=== PATIENT | female | born 1970 | race Caucasian/White ===

== ENCOUNTER 2016-08-16 09:49 | Inpatient (IN) | payer OTHER ==
[~2016-08-16] VITALS: Ht 165.1 cm; Wt 122.1 kg
[~2016-08-16 09:49] MED LIST: ALPR0.5T PO; AZIT250T PO; CETI10TA22 PO; DIPH25CA58 PO; EPIN0.3A4 IJ; FAMO-63 PO; FLUT9.9S NS; LEVO150T PO; LISI10TA2 PO; PRED20TA PO
--- NOTE | 2016-08-16 10:03 | EKG ---
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
[2016-08-16 10:23] LABS: BASO # 0.1 x10^3/uL (0.0-0.2); BASO % 2 % (0-3); EOS # 0.3 x10^3/uL (0.0-0.7); EOS % 5 % (0-3); HEMATOCRIT 38.2 % (36.0-47.0); HEMOGLOBIN 12.3 g/dL (12.0-15.5); LYMPH # 1.1 x10^3/uL (1.0-4.8); LYMPH % 17 % (24-48); MEAN CORPUSCULAR HEMOGLOBIN 26 pg (25-35); MEAN CORPUSCULAR HGB CONC 32 g/dL (31-37); MEAN CORPUSCULAR VOLUME 80 fL (79-100); MONO # 0.5 x10^3/uL (0.0-1.1); MONO % 8 % (0-9); NEUT # 4.3 x10^3uL (1.8-7.7); NEUT % 69 % (31-73); PLATELET COUNT 167 x10^3/uL (140-400); RED BLOOD COUNT 4.78 x10^6/uL (3.50-5.40); RED CELL DISTRIBUTION WIDTH 14.4 % (11.5-14.5); WHITE BLOOD COUNT 6.2 x10^3/uL (4.0-11.0)
--- NOTE | 2016-08-16 10:26 | ED.ADGEN ---
Past History Past Medical History: Cancer, Hypertension Past Surgical History: Cholecystectomy, , Other Smoking: Non-smoker Alcohol Use: None Drug Use: None Adult General Chief Complaint Chief Complaint Chest pain HPI HPI Patient is a 45 year old female who presents with chest pain. Started at 9 AM while she was sitting at home. It's in her left side of her chest, nonradiating , squeezing sensation, no associated shortness of breath or diaphoresis. She has had this another time in the past. She has no known cardiac disease, had a negative stress test 4 years ago. She does not take daily aspirin, reports grandmas on both sides had cardiac disease, one in her 50s. Patient has hypothyroid and takes thyroid replacement. She's had fatigue in recent weeks. NO History of PE or DVT reported. No recent surgeries or prolonged immobilization, no estrogen replacement. She's had a mild cough and runny nose over the last few days, no fevers. He does not worsen with movement or deep inspiration. Review of Systems Review of Systems Constitutional: Denies fever or chills [] Eyes: Denies change in visual acuity, redness, or eye pain [] HENT: Denies sore throat [] Respiratory: Denies shortness of breath [] Cardiovascular: No additional information not addressed in HPI [] GI: Denies abdominal pain, nausea, vomiting, bloody stools or diarrhea [] : Denies dysuria or hematuria [] Musculoskeletal: Denies back pain or joint pain [] Integument: Denies rash or skin lesions [] Neurologic: Denies headache, focal weakness or sensory changes [] Current Medications Current Medications Current Medications Medications (Trade) Dose Ordered Sig/Gaurang Start Time Stop Time Status Last Admin Dose Admin Aspirin (Anel Aspirin) 325 mg 1X ONCE 08/16/16 10:55 08/16/16 10:56 08/16/16 10:47 325 MG Fentanyl Citrate (Fentanyl 2ml Vial) 50 mcg PRN Q1HR PRN 08/16/16 10:45 08/17/16 10:44 UNV Nitroglycerin (Nitrostat) 0.4 mg 1X ONCE 08/16/16 10:55 08/16/16 10:56 08/16/16 10:47 0.4 MG Ondansetron HCl (Zofran) 4 mg PRN Q4HRS PRN 08/16/16 10:45 08/17/16 10:44 UNV Allergies Allergies Allergies Coded Allergies Type Severity Reaction Last Updated Verified No Known Drug Allergies 06/19/15 No Physical Exam Physical Exam Constitutional: Well developed, well nourished, no acute distress, non-toxic appearance. [] HENT: Normocephalic, atraumatic, bilateral external ears normal, oropharynx moist, no oral exudates, nose normal. [] Eyes: PERRLA, EOMI, conjunctiva normal, no discharge. [] Neck: Normal range of motion, no tenderness, supple, no stridor. [] Cardiovascular:Heart rate regular with regular rhythm, no murmur [] Lungs & Thorax: Bilateral breath sounds clear to auscultation, no wheeze or crackles Abdomen: Bowel sounds normal, soft, no tenderness, no masses, no pulsatile masses. [] Skin: Warm, dry, no erythema, no rash. [] Back: No tenderness, no CVA tenderness. [] Extremities: No tenderness, no cyanosis, no clubbing, ROM intact, trace bilateral lower extremity edema, negative Homans bilaterally Neurologic: Alert and oriented X 3, normal motor function, normal sensory function, no focal deficits noted. [] Psychologic: Affect normal, judgement normal, mood normal. [] Current Patient Data Vital Signs Vital Signs Date Time Temp Pulse Resp B/P Pulse Ox O2 Delivery O2 Flow Rate FiO2 08/16/16 10:47 94 123/62 Lab Results Laboratory Tests Test 08/16/16 10:10 08/16/16 10:16 08/16/16 10:31 White Blood Count 6.2x10^3/uL (4.0-11.0) Red Blood Count 4.78x10^6/uL (3.50-5.40) Hemoglobin 12.3g/dL (12.0-15.5) Hematocrit 38.2% (36.0-47.0) Mean Corpuscular Volume 80fL (79-100) Mean Corpuscular Hemoglobin 26pg (25-35) Mean Corpuscular Hemoglobin Concent 32g/dL (31-37) Red Cell Distribution Width 14.4% (11.5-14.5) Platelet Count 167x10^3/uL (140-400) Neutrophils (%) (Auto) 69% (31-73) Lymphocytes (%) (Auto) 17% (24-48) L Monocytes (%) (Auto) 8% (0-9) Eosinophils (%) (Auto) 5% (0-3) H Basophils (%) (Auto) 2% (0-3) Neutrophils # (Auto) 4.3x10^3uL (1.8-7.7) Lymphocytes # (Auto) 1.1x10^3/uL (1.0-4.8) Monocytes # (Auto) 0.5x10^3/uL (0.0-1.1) Eosinophils # (Auto) 0.3x10^3/uL (0.0-0.7) Basophils # (Auto) 0.1x10^3/uL (0.0-0.2) POC Troponin I 0.01ng/ml (<0.08) POC Hemoglobin 12.9gm/dL POC Hematocrit 38% POC Sodium 139mmol/L (135-145) POC Potassium 4.0mmol/L (3.5-5.0) POC Chloride 103mmol/L (98-110) POC Total CO2 25mmol/L (23-32) Anion Gap 17mmol/L (6-14) H POC Blood Urea Nitrogen 10mg/dL (8-26) POC Creatinine 0.6mg/dL (0.5-1.4) Glucose Level 88mg/dL (60-99) POC Ionized Calcium (Lara) 1.18mmol/L (1.13-1.32) EKG EKG 75 bpm, sinus, normal axis, normal intervals, no ST elevation or depression, nonischemic T waves, interpreted by ms Radiology/Procedures Radiology/Procedures Chest x-ray: IMPRESSION: No acute cardiopulmonary abnormality is detected. Course & Med Decision Making Course & Med Decision Making Pertinent Labs and Imaging studies reviewed. (See chart for details) Patient was given aspirin and nitroglycerin. No acute findings on ED workup. Will admit for serial cardiac enzymes. Accepted by Dr. Fitzpatrick to telemetry. Added thyroid labs. Final Impression Final Impression Unstable angina[] Problems: Dragon Disclaimer Dragon Disclaimer This electronic medical record was generated, in whole or in part, using a voice recognition dictation system. ROBBIE STEELE MD Aug 16, 2016 10:26
--- NOTE | 2016-08-16 10:26 | RAD ---
Portable chest, 08/16/2016: History: Chest pain Comparison is made to a study from 09/24/2015. The depth of inspiration is suboptimal. The heart size and pulmonary vascularity are normal. No pulmonary infiltrates are seen. There is no evidence of pleural fluid. Surgical clips are projected over the lower neck, right more so than left. IMPRESSION: No acute cardiopulmonary abnormality is detected.
[2016-08-16 10:37] LABS: HEMOGLOBIN ISTAT 12.9 gm/dL
[2016-08-16] MEDS ORDERED: FENTANYL PF 100 MCG/2 ML VIAL. IV PRN (10:45)
[2016-08-16] MEDS ORDERED: ONDANSETRON PF 4 MG/2 ML VIAL. IV PRN (10:45)
[2016-08-16] MEDS ORDERED: NITROGLYCERIN SUBLINGUAL 0.4 MG BOTTLE OF 25. SL ONE (10:55)
[2016-08-16] MEDS ORDERED: ASPIRIN 325 MG TABLET PO ONE (10:55)
[2016-08-16 13:59] LABS: FREE T4 1.43 ng/dL (0.76-1.46); THYROID STIM HORMONE (TSH) 1.995 uIU/mL (0.358-3.740)
[2016-08-16 14:00] VITALS: BP 122/75
[2016-08-16 14:43] VITALS: BP 122/75
[2016-08-16 17:15] VITALS: BP 112/69
--- NOTE | 2016-08-16 19:32 | HP ---
ADMIT DATE: 08/16/2016 HISTORY OF PRESENT ILLNESS: The patient is a 45-year-old female patient who came to the Emergency Room complaining of left-sided chest pain that started this morning when she was ____. The pain is mostly in the left side of the chest started around 9:00 in the morning. It is not associated with any shortness of breath, nausea, vomiting or diaphoresis, not radiating. It was rated about 4-5/10 and she was given nitroglycerin and aspirin while in the Emergency Room, which brought the intensity to down to 3. She continues to have mild left-sided chest pain at the time I saw her. She apparently was evaluated in the Emergency Room and her first set of cardiac enzymes showed troponin to be 0.01. Her chest x-ray showed no acute cardiopulmonary abnormality detected and her 12-lead EKG showed that she was in sinus rhythm at heart rate of 75 beats per minute, normal intervals, no ST segment elevation or depression and nonischemic T waves. 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 PAST MEDICAL HISTORY: Significant for hypertension, thyroid cancer with resultant acquired hypothyroidism. She was treated with surgery and radioactive iodine and she is currently on Synthroid. PAST SURGICAL HISTORY: Significant for thyroidectomy and resection done twice in 2011 initially to remove the thyroid and second time to resect metastatic thyroid cancer in the cervical lymph node and also she is status post D and C, 2 sections, tubal ligation and cholecystectomy. ALLERGIES: She has no known drug allergies. She does have seasonal allergies. MEDICATIONS: She is currently on following medications: She is on levothyroxine sodium 150 mcg once a day, lisinopril 5 mg once a day, she is also on Flonase 2 sprays to each nostril once a day, famotidine 20 mg twice a day, EpiPen 2 packs for anaphylaxis, diphenhydramine 2 capsules p.o. q.i.d., cetirizine for Zyrtec 10 mg once a day, azithromycin 250 mg and alprazolam 0.5 mg daily. FAMILY HISTORY: She has 2 young brothers, one of them has joint disease. Father is still alive at age of 68 and is known to have hypertension and type 2 diabetes. Mother is alive at age of 67 and is known to have hyperthyroidism and hypertension. Her grandmother from her father's side had 2 myocardial infarctions in her mid 50s. SOCIAL HISTORY: She is , has 3 sons and 1 daughter. She never smoked, does not drink alcohol or use any recreational drugs. 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 REVIEW OF SYSTEMS: The patient denied any blurring of vision, cataract, glaucoma or macular degeneration. Denied any earache, tinnitus or sensorineural deafness. Denied any nosebleeds, stuffy nose or postnasal drip. Denied any sore throat, sore tongue, toothache, hoarseness of voice or difficulty swallowing. Denied any nausea, vomiting, diarrhea or constipation. Denied any hematemesis, melena, or hematochezia. Denied any dysuria, frequency or hematuria. She did complain of chest pain; however, she denied any shortness of breath, orthopnea or paroxysmal nocturnal dyspnea. Denied any cough, phlegm or hemoptysis. PHYSICAL EXAMINATION: GENERAL: On arrival to the Emergency Room, she looked well and was clearly in no apparent respiratory distress, pale, but no jaundice, cyanosis or thyromegaly. No jugular venous distention. No limb edema. VITAL SIGNS: Her heart rate was 98, blood pressure was 120/53, temperature was 97.9, respiratory rate was 18 and oxygen saturation was 98%. HEAD, EYES, EARS, NOSE AND THROAT: Showed normocephalic, atraumatic. NECK: Supple. HEART: Showed normal first and second heart sounds with no gallop, rub or murmur. CHEST: Clear to auscultation. No crepitation or rhonchi. ABDOMEN: Distended, soft, nontender. No guarding or rigidity. No organomegaly. All hernial orifices intact. Bowel sounds normal. NEUROLOGIC: She was awake, alert, responding appropriately. Cranial nerves are intact. She moves extremities without difficulty. She ambulates without assistance or assistive devices. LABORATORY DATA: While in the Emergency Room, she had lab work done, which showed a white cell count of 6200, hemoglobin 12.3, hematocrit 38, MCV 80 and platelet count of 167,000 with normal manual differential. Chemistry showed a serum sodium of 139, potassium 4, chloride 103, bicarbonate 25, anion gap of 17, BUN 10 ____. Her blood sugar was 88. Ionized calcium was 1.18. Her TSH was 1.995. Her free T4 was 1.43 and free T3 was 2.31. ASSESSMENT AND PLAN: In summary, this is a 45-year-old female patient who came with left-sided chest pain, fairly atypical. She has high blood pressure and family history of premature coronary artery disease. She is not a smoker. She is not diabetic. Her lipid profile is unknown. We will admit and check 2 more sets of cardiac enzyme, get Cardiology consult and decide on further management accordingly. RUTH MEDINA MD DR: JENNIFER/bobo JOB#: [id number] / [id number]
[2016-08-16] MEDS ORDERED: DIPHENHYDRAMINE HCL 25 MG CAPSULE PO PRN (21:45)
[2016-08-16] MEDS ORDERED: CETIRIZINE HCL 10 MG TABLET PO PRN (21:45)
[2016-08-16 22:00] VITALS: BP 125/70
[2016-08-16] MEDS ORDERED: LISI-338 PO (22:04)
[2016-08-17 05:00] VITALS: BP 126/77
[2016-08-17] MEDS: LEVOTHYROXINE 150 MCG TABLET PO SCH (06:13)
[2016-08-17 06:21] LABS: BASO # 0.1 x10^3/uL (0.0-0.2); BASO % 1 % (0-3); EOS # 0.3 x10^3/uL (0.0-0.7); EOS % 5 % (0-3); HEMATOCRIT 36.4 % (36.0-47.0); HEMOGLOBIN 11.7 g/dL (12.0-15.5); LYMPH # 1.2 x10^3/uL (1.0-4.8); LYMPH % 20 % (24-48); MEAN CORPUSCULAR HEMOGLOBIN 26 pg (25-35); MEAN CORPUSCULAR HGB CONC 32 g/dL (31-37); MEAN CORPUSCULAR VOLUME 80 fL (79-100); MONO # 0.5 x10^3/uL (0.0-1.1); MONO % 9 % (0-9); NEUT # 4.1 x10^3uL (1.8-7.7); NEUT % 66 % (31-73); PLATELET COUNT 154 x10^3/uL (140-400); RED BLOOD COUNT 4.56 x10^6/uL (3.50-5.40); RED CELL DISTRIBUTION WIDTH 15.2 % (11.5-14.5); WHITE BLOOD COUNT 6.2 x10^3/uL (4.0-11.0)
[2016-08-17 06:36] LABS: ALBUMIN 3.3 g/dL (3.4-5.0); ALBUMIN/GLOBULIN RATIO 0.9 (1.0-1.7); CALCIUM 8.8 mg/dL (8.5-10.1); CREATININE 0.7 mg/dL (0.6-1.0); GFR 90.9; TOTAL BILIRUBIN 0.3 mg/dL (0.2-1.0)
[2016-08-17] MEDS: LISINOPRIL 5 MG TABLET. PO SCH (08:26)
--- NOTE | 2016-08-17 09:11 | PDOC2 ---
CONSULT Date of Admission DATE: 08/17/16 TIME: 09:04 Reason for Consult: cp Problem List Problems Medical Problems: (1) Chest pain Status: Acute History of Present Illness Ms parra is a 45 year old obese white female. She presents with complaints of chest discomfort that started yesterday. She describes left sided chest discomfort that was non radiating that started while doing normal light activity. She denies any exacerbating or relieving factors. She reports several episodes of the same pain recently but less severe and only lasting short periods. She complains of fatigue, progressive over the last year. She believes she could walk about a quarter mile but does not do so secondary to fatigue. She has stairs in her house that she avoids because of shortness of breath and fatigue. This started she believes over the last 1 year. She complains of occasional sensation of her heart racing but denies any lightheadedness or syncope. She denies congestive symptoms. She does report frequent waking and snoring but states she had an eval for DMITRY in the recent past that was negative. Past Medical History thyroid cancer s/p chemo and radiation hypertension Past Surgical History thyroidectomy, lymph node resection tubal ligation cholecystectomy Family History hypertension, diabetes mellitus Social History non smoker, no significant ETOH, no illicit drugs Current Medications Current Medications Aspirin (Anel Aspirin) 325 mg 1X ONCE PO Last administered on 08/16/16 10:47 ; Start 08/16/16 at 10:55; Stop 08/16/16 at 10:56; Status DC Nitroglycerin (Nitrostat) 0.4 mg 1X ONCE SL Last administered on 08/16/16 10: 47; Start 08/16/16 at 10:55; Stop 08/16/16 at 10:56; Status DC Ondansetron HCl (Zofran) 4 mg PRN Q4HRS PRN IV NAUSEA/VOMITING; Start 08/16/16 at 10:45; Stop 08/17/16 at 10:44 Fentanyl Citrate (Fentanyl 2ml Vial) 50 mcg PRN Q1HR PRN IV PAIN; Start at 10:45; Stop 08/17/16 at 10:44 Cetirizine HCl (Zyrtec) 10 mg PRN DAILY PRN PO ALLERGIES; Start 08/16/16 at 21: 45 Diphenhydramine HCl (Benadryl) 25 mg PRN QID PRN PO ALLERGIES; Start 08/16/16 at 21:45 Levothyroxine Sodium (Synthroid) 150 mcg DAILY07 PO Last administered on 06:13; Start 08/17/16 at 07:00 Lisinopril (Prinivil) 5 mg DAILY PO Last administered on 08/17/16 08:26; Start 08/17/16 at 09:00 Active Scripts Active Flonase Allergy Relief (Fluticasone Propionate) 9.9 Ml Anderson.susp 2 Sprays NS DAILY Xanax (Alprazolam) 0.5 Mg Tablet 1 Tab PO DAILY Zithromax (Azithromycin) 250 Mg Tablet 1 Pkg PO UD Prednisone 20 Mg Tablet 2 Tab PO DAILY Pepcid (Famotidine) 20 Mg Tablet 1 Tab PO BID Benadryl (Diphenhydramine Hcl) 25 Mg Capsule 2 Cap PO QID Epipen 2-Curtis (Epinephrine) 0.3 Mg/0.3 Ml Auto.injct 0.3 Mg IJ PRN 1X PRN Reported Lisinopril 5 Mg Tablet 1 Tab PO DAILY Synthroid (Levothyroxine Sodium) 150 Mcg Tablet 150 Mcg PO DAILY Zyrtec (Cetirizine Hcl) 10 Mg Tablet 10 Mg PO DAILY Allergies: Coded Allergies: No Known Drug Allergies (Unverified , 06/19/15) Review of System as per HPI or negative General: Alert, Oriented X3, Cooperative, No acute distress HEENT: Atraumatic, EOMI, Mucous membr. moist/pink Lungs: Other (decreased without crackles, rhonchi or wheezing) Heart: Regular rate, Normal S1, Normal S2, Other (no obvious murmurs, clicks or rub s, no gallops) Abdomen: Normal bowel sounds, Soft, No tenderness Extremities: No cyanosis, No edema, Normal pulses Neuro: Normal speech, Strength at 5/5 X4 ext Psych/Mental Status: Mental status NL, Mood NL VITALS Vital Signs Date Time Temp Pulse Resp B/P Pulse Ox O2 Delivery O2 Flow Rate FiO2 08/17/16 08:26 74 08/17/16 08:00 Room Air 08/17/16 05:00 97.5 18 126/77 99 Labs Laboratory Tests Test 08/16/16 10:10 08/16/16 10:16 08/16/16 10:31 08/16/16 12:00 White Blood Count 6.2x10^3/uL (4.0-11.0) Red Blood Count 4.78x10^6/uL (3.50-5.40) Hemoglobin 12.3g/dL (12.0-15.5) Hematocrit 38.2% (36.0-47.0) Mean Corpuscular Volume 80fL (79-100) Mean Corpuscular Hemoglobin 26pg (25-35) Mean Corpuscular Hemoglobin Concent 32g/dL (31-37) Red Cell Distribution Width 14.4% (11.5-14.5) Platelet Count 167x10^3/uL (140-400) Neutrophils (%) (Auto) 69% (31-73) Lymphocytes (%) (Auto) 17% (24-48) Monocytes (%) (Auto) 8% (0-9) Eosinophils (%) (Auto) 5% (0-3) Basophils (%) (Auto) 2% (0-3) Neutrophils # (Auto) 4.3x10^3uL (1.8-7.7) Lymphocytes # (Auto) 1.1x10^3/uL (1.0-4.8) Monocytes # (Auto) 0.5x10^3/uL (0.0-1.1) Eosinophils # (Auto) 0.3x10^3/uL (0.0-0.7) Basophils # (Auto) 0.1x10^3/uL (0.0-0.2) Thyroid Stimulating Hormone (TSH) 1.995uIU/mL (0.358-3.740) Free Thyroxine 1.43ng/dL (0.76-1.46) Free Triiodothyronine (T3) pg/mL 2.31pg/mL (2.18-3.98) Bedside Troponin I 0.01ng/ml (<0.08) Bedside Hemoglobin 12.9gm/dL Bedside Hematocrit 38% Bedside Sodium 139mmol/L (135-145) Bedside Potassium 4.0mmol/L (3.5-5.0) Bedside Chloride 103mmol/L (98-110) Bedside Total CO2 25mmol/L (23-32) Anion Gap 17mmol/L (6-14) Bedside Blood Urea Nitrogen 10mg/dL (8-26) Bedside Creatinine 0.6mg/dL (0.5-1.4) Glucose Level 88mg/dL (60-99) Bedside Ionized Calcium (Lara) 1.18mmol/L (1.13-1.32) Nasal Screen MRSA (PCR) Negative (Negative) Test 08/16/16 15:40 08/16/16 21:40 08/17/16 05:49 Troponin I Quantitative < 0.017ng/mL (0-0.055) < 0.017ng/mL (0-0.055) White Blood Count 6.2x10^3/uL (4.0-11.0) Red Blood Count 4.56x10^6/uL (3.50-5.40) Hemoglobin 11.7g/dL (12.0-15.5) Hematocrit 36.4% (36.0-47.0) Mean Corpuscular Volume 80fL (79-100) Mean Corpuscular Hemoglobin 26pg (25-35) Mean Corpuscular Hemoglobin Concent 32g/dL (31-37) Red Cell Distribution Width 15.2% (11.5-14.5) Platelet Count 154x10^3/uL (140-400) Neutrophils (%) (Auto) 66% (31-73) Lymphocytes (%) (Auto) 20% (24-48) Monocytes (%) (Auto) 9% (0-9) Eosinophils (%) (Auto) 5% (0-3) Basophils (%) (Auto) 1% (0-3) Neutrophils # (Auto) 4.1x10^3uL (1.8-7.7) Lymphocytes # (Auto) 1.2x10^3/uL (1.0-4.8) Monocytes # (Auto) 0.5x10^3/uL (0.0-1.1) Eosinophils # (Auto) 0.3x10^3/uL (0.0-0.7) Basophils # (Auto) 0.1x10^3/uL (0.0-0.2) Sodium Level 139mmol/L (136-145) Potassium Level 4.0mmol/L (3.5-5.1) Chloride Level 104mmol/L (98-107) Carbon Dioxide Level 28mmol/L (21-32) Anion Gap 7 (6-14) Blood Urea Nitrogen 9mg/dL (7-20) Creatinine 0.7mg/dL (0.6-1.0) Estimated GFR (Cockcroft-Gault) 90.9 BUN/Creatinine Ratio 13 (6-20) Glucose Level 89mg/dL (70-99) Calcium Level 8.8mg/dL (8.5-10.1) Magnesium Level 2.1mg/dL (1.8-2.4) Total Bilirubin 0.3mg/dL (0.2-1.0) Aspartate Amino Transf (AST/SGOT) 15U/L (15-37) Alanine Aminotransferase (ALT/SGPT) 21U/L (14-59) Alkaline Phosphatase 49U/L (46-116) Total Protein 7.0g/dL (6.4-8.2) Albumin 3.3g/dL (3.4-5.0) Albumin/Globulin Ratio 0.9 (1.0-1.7) Images EKG - sinus rhythm with non specific t abnormalities Assessment/Plan Chest pain - DE ruled out. Will check echo and with symptoms of poor functional capacity and progressive fatigue as well as new dyspnea on exertion, will recommend MPI. Stress today. abn ekg - no acute ischemic changes hypertension - controlled on current medical therapy. Problems: CHRISTINA MOORE APRN Aug 17, 2016 09:11
[2016-08-17] MEDS ORDERED: REGADENOSON 0.4 MG/5 ML DISP.SYRIN. IV ONE (11:20)
[2016-08-17 12:49] VITALS: BP 135/75
--- NOTE | 2016-08-17 13:19 | ACF ---
Admission Criteria Forms TELEMETRY CARE Telemetry Admission Guidelines (Place 'X' for any and all applicable criteria): Admission to telemetry [A] may be indicated for ANY ONE of the following(1)(2)(3 )(4)(5): [X]I. Cardiac disease, including ANY ONE of the following (9)(10)(11)(12)(13 ): [ ]a) Postacute AR [ ]b) Low-risk patients with ST-segment elevation AR who have undergone successful percutaneous coronary intervention [X]c) Unstable angina [ ]d) Suspected AR (until it is ruled out) [ ]e) Post cardiac surgery (first 48 to 72 hours unless complications occur) [ ]f) Acute arrhythmias (including significant tachycardia or bradycardia) [B] [ ]g) Firing of an implantable cardioverter defibrillator [C] [ ]h) Suspected pacemaker or implantable cardioverter defibrillator malfunction (10) [ ]i) New administration or adjustment of an antiarrhythmic drug [D ] [ ]j) Child admitted for acute congestive heart failure [ ]j) Long QT syndrome [ ]k) Advanced heart block (eg, second-degree Mobitz type II, third- degree heart block) [ ]l) Acute myocarditis or pericarditis [ ]m) Short-term (ambulatory or inpatient) monitoring after a cardiac procedure as indicated by ANY ONE of the following [E]: [ ]i) Electrophysiologic studies [ ]ii) Percutaneous coronary intervention with stent placement [ ]iii) Pacemaker placement with cardiac conduction defect [ ]iv) Implantable cardiac defibrillator placement [ ]II. Drug overdose or poisoning with substance that causes arrhythmias or QT prolongation (eg, phenothiazines, sympathomimetic agents, cyclic antidepressants, digitalis, antiarrhythmic drugs)(15) [ ]III. Short-term (ambulatory or inpatient) monitoring after therapeutic or diagnostic procedure requiring conscious sedation or anesthesia (eg, endoscopy, elective cardioversion) [ ]IV. Acute cerebrovascular even[F](18) [ ]V. Massive blood transfusion (eg, at least 10 units of packed red blood cells in 24 hours) [ ]. Variceal bleeding after endoscopy, sclerotherapy, or IV vasopressin [ ]VII. Uncorrected electrolyte abnormalities associated with an increased risk of dangerous arrhythmia [G]; examples include [ ]a) Hyperkalemia with attributable ECG changes [ ]b) Potassium greater than 6.5 mmol/L (mEq/L) in a patient without history of chronic renal disease [ ]c) Prolonged QT attributed to hypokalemia, hypomagnesemia, or hypocalcemia [ ]VIII.Unexplained syncope or other neurologic event suspected of being due to arrhythmia due to a finding that increases risk; examples include(19)(20)(21): [ ]a) High-risk ECG findings (eg, bifascicular block, bradycardia, abnormal QT interval, ventricular pre- excitation) [ ]b) History of previous syncope due to arrhythmia [ ]c) Abnormal ventricular function (eg, reduced ejection fraction ) [ ]d) Exertional or supine syncope [ ]e) Concerning syncope characteristics (eg, sudden loss of consciousness without prodrome) [ ]f) Family history of sudden [ ]g) Use of arrhythmogenic medication [ ]h) Suspected cardiac ischemia [ ]i) Known channelopathy (eg, long QT syndrome, Brugada syndrome, or catecholaminergic paroxysmal ventricular tachycardia) [ ]j) Known structural heart disease (eg, hypertrophic cardiomyopathy , severe valvular disease) [ ]k) Palpitations preceding syncope The original [employer] content created by [employer] has been revised. The portions of the content which have been revised are identified through the use of italic text or in bold, and [employer] has neither reviewed nor approved the modified material. All other unmodified content is copyright [employer]. Please see references footnoted in the original [employer] edition 2016 Admission Criteria Met?: Yes HONG FARLEY Aug 17, 2016 13:19
--- NOTE | 2016-08-17 16:37 | CARD ---
APPROVED REPORT EXAM: Two-dimensional and M-mode echocardiogram with Doppler and color Doppler. Other Information Quality : Technically Limited Rhythm : NSRTechnically limited study due to body habitus. INDICATION Chest Pain 2D DIMENSIONS RVDd3.1 (2.9-3.5cm)Left Atrium(2D)3.0 (1.6-4.0cm) IVSd1.3 (0.7-1.1cm)Aortic Root(2D)2.3 (2.0-3.7cm) LVDd4.1 (3.9-5.9cm)LVOT Diameter2.3 (1.8-2.4cm) PWd1.3 (0.7-1.1cm)LVDs3.0 (2.5-4.0cm) FS (%) 28.0 %SV40.8 ml LVEF(%)54.7 (>50%) Aortic Valve AoV Peak Kingsley.142.2cm/sAoV VTI28.2cm AO Peak GR.8.1mmHgLVOT Peak Kingsley.114.1cm/s LVOT VTI 21.45cmAO Mean GR.5mmHg KRYSTAL (VMAX)3.71zs5URU (VTI)3.07cm2 Mitral Valve MV E Zgsyzlsy28.5cm/sMV DECEL [id number] MV A Mznlzqbh62.0cm/sMV DEQ68ii E/A Ratio1.1MV A Ptsllcvz83bj MVA (PHT)4.59cm2 Tricuspid Valve TR P. Yprltvcd203au/sRAP [id number] TR Peak Gr.73jdPaBBFY90ioWt LEFT VENTRICLE The left ventricle is normal size. There is borderline concentric left ventricular hypertrophy. Left ventricle systolic function is normal. The Ejection Fraction is 55-60%. There is normal LV segmental wall motion. The left ventricular diastolic function and filling is normal for age. RIGHT VENTRICLE The right ventricle is normal size. The right ventricular systolic function is normal. ATRIA The left atrium size is normal. The right atrium size is normal. The interatrial septum is intact wit h no evidence for an atrial septal defect or patent foramen ovale as noted on 2-D or Doppler imaging. AORTIC VALVE The aortic valve is normal in structure and function. The aortic valve is trileaflet. Doppler and Col or Flow revealed no significant aortic regurgitation. There is no significant aortic valvular stenosi s. MITRAL VALVE The mitral valve is normal in structure and function. There is no mitral valve stenosis. Doppler and Color Flow revealed no mitral valve regurgitation noted. TRICUSPID VALVE The tricuspid valve is normal in structure and function. Doppler and Color Flow revealed trace to mil d tricuspid regurgitation. The PA pressure was estimated at 29 mmHg. There is no tricuspid valve sten osis. PULMONIC VALVE The pulmonic valve is not well visualized. Doppler and Color Flow revealed no pulmonic valvular regur gitation. There is no pulmonic valvular stenosis. GREAT VESSELS The aortic root is normal in size. Pulmonary veins not recorded. The IVC was not visualized. PERICARDIAL EFFUSION There is no evidence of significant pericardial effusion. Critical Notification Critical Value: No <Conclusion> Left ventricle systolic function is normal. The Ejection Fraction is 55-60%. There is normal LV segmental wall motion. Trace to mild tricuspid regurgitation. The PA pressure was estimated at 29 mmHg. There is no evidence of significant pericardial effusion.
[2016-08-17 17:31] VITALS: BP 135/74
[2016-08-17 19:47] VITALS: BP 134/69
[2016-08-18 06:00] VITALS: BP 130/73
[2016-08-18] MEDS: LEVOTHYROXINE 150 MCG TABLET PO SCH (06:16)
--- NOTE | 2016-08-18 07:02 | PN ---
DATE: 08/17/2016 SUBJECTIVE: The patient is resting slightly, propped up in bed, in no apparent respiratory distress. She was admitted mostly with left-sided chest discomfort that was nonradiating and was mostly atypical. No nausea. No vomiting. No shortness of breath. No diaphoresis. She has so far two sets of cardiac enzymes that were negative. Her EKG showed that she was in sinus rhythm with nonspecific T changes. She apparently was seen by the Cardiology team and she has had her nuclear stress test done, results of which is still pending. PHYSICAL EXAMINATION: GENERAL: When I examined her this afternoon, she looked well and was clearly in no apparent respiratory distress and pale, but no jaundice, cyanosis, or thyromegaly. No jugular venous distention. No limb edema. VITAL SIGNS: Her heart rate was 101, blood pressure was 135/75, temperature was 97.9, respiratory rate 20, and oxygen saturation was 95%. The rest of clinical examination is unremarkable and has not really changed. LABORATORY DATA: Her lab work this morning showed a white cell count 6200, hemoglobin 11.7, hematocrit 36, MCV 80, and platelet count of 154,000 with normal manual differential. Her chemistry showed serum sodium 139, potassium 4, chloride 104, bicarbonate 28, anion gap of 7, BUN 9, creatinine 0.7, and estimated GFR was 90 mL per minute. Her glucose was 89, calcium was 8.8, and magnesium 2.1. Total bilirubin, AST, ALT, alkaline phosphatase were normal. Her total protein was 7 and albumin was 3.3. ASSESSMENT: 1. Left-sided chest pain fairly atypical, myocardial infarction ruled out. 2. Hypertension, well controlled. She is on lisinopril 5 mg once a day 3. Hypothyroidism for which she is on levothyroxine 150 mcg . Her T3, T4, free T4, and TSH are all normal. 4. Seasonal allergies for which she is on Flonase 2 sprays to each nostril once a day and Xanax for anxiety 0.5 mg once a day. PLAN: Plan is obviously to wait for the results of the nuclear stress test for decision making regarding further workup or discharge home. RUTH MEDINA MD DR: JENNIFER/bobo JOB#: [id number] / [id number]
[2016-08-18] MEDS: LISINOPRIL 5 MG TABLET. PO SCH (07:59)
--- NOTE | 2016-08-18 08:26 | PDOC ---
PROGRESS NOTES Diagnosis Problem Problems Medical Problems: (1) Chest pain Status: Acute Assessment Problems Medical Problems: (1) Chest pain Status: Acute 1. Chest pain - LA ruled out. MPI pending. Normal LVEF and wall motion by echo. RF reduction. 2. hypertension - controlled, continue current medical therapy. 3. mild dyslipidemia - dietary control Problems: Subjective no new chest pain. no dyspnea or palpitations. Objective Vital Signs Date Time Temp Pulse Resp B/P Pulse Ox O2 Delivery O2 Flow Rate FiO2 08/18/16 07:59 80 08/18/16 06:00 97.5 16 130/73 96 Room Air Intake and Output 08/18/16 07:00 Intake Total 1000 ml Balance 1000 ml Intake Oral 1000 ml # Voids 7 Abdomen: Normal bowel sounds, Soft, No tenderness Heart: Regular rate, Normal S1, Normal S2 General: Alert, Oriented X3, Cooperative, No acute distress HEENT: Atraumatic, EOMI Lungs: Other (decreased bases) Neuro: Normal speech, Strength at 5/5 X4 ext Psych/Mental Status: Mental status NL, Mood NL Review of Relevant I have reviewed the following items ashley (where applicable) has been applied. Labs Laboratory Tests Test 08/16/16 10:10 08/16/16 10:16 08/16/16 10:31 08/16/16 12:00 White Blood Count 6.2x10^3/uL (4.0-11.0) Red Blood Count 4.78x10^6/uL (3.50-5.40) Hemoglobin 12.3g/dL (12.0-15.5) Hematocrit 38.2% (36.0-47.0) Mean Corpuscular Volume 80fL (79-100) Mean Corpuscular Hemoglobin 26pg (25-35) Mean Corpuscular Hemoglobin Concent 32g/dL (31-37) Red Cell Distribution Width 14.4% (11.5-14.5) Platelet Count 167x10^3/uL (140-400) Neutrophils (%) (Auto) 69% (31-73) Lymphocytes (%) (Auto) 17% (24-48) Monocytes (%) (Auto) 8% (0-9) Eosinophils (%) (Auto) 5% (0-3) Basophils (%) (Auto) 2% (0-3) Neutrophils # (Auto) 4.3x10^3uL (1.8-7.7) Lymphocytes # (Auto) 1.1x10^3/uL (1.0-4.8) Monocytes # (Auto) 0.5x10^3/uL (0.0-1.1) Eosinophils # (Auto) 0.3x10^3/uL (0.0-0.7) Basophils # (Auto) 0.1x10^3/uL (0.0-0.2) Thyroid Stimulating Hormone (TSH) 1.995uIU/mL (0.358-3.740) Free Thyroxine 1.43ng/dL (0.76-1.46) Free Triiodothyronine (T3) pg/mL 2.31pg/mL (2.18-3.98) Bedside Troponin I 0.01ng/ml (<0.08) Bedside Hemoglobin 12.9gm/dL Bedside Hematocrit 38% Bedside Sodium 139mmol/L (135-145) Bedside Potassium 4.0mmol/L (3.5-5.0) Bedside Chloride 103mmol/L (98-110) Bedside Total CO2 25mmol/L (23-32) Anion Gap 17mmol/L (6-14) Bedside Blood Urea Nitrogen 10mg/dL (8-26) Bedside Creatinine 0.6mg/dL (0.5-1.4) Glucose Level 88mg/dL (60-99) Bedside Ionized Calcium (Lara) 1.18mmol/L (1.13-1.32) Nasal Screen MRSA (PCR) Negative (Negative) Test 08/16/16 15:40 08/16/16 21:40 08/17/16 05:49 Troponin I Quantitative < 0.017ng/mL (0-0.055) < 0.017ng/mL (0-0.055) White Blood Count 6.2x10^3/uL (4.0-11.0) Red Blood Count 4.56x10^6/uL (3.50-5.40) Hemoglobin 11.7g/dL (12.0-15.5) Hematocrit 36.4% (36.0-47.0) Mean Corpuscular Volume 80fL (79-100) Mean Corpuscular Hemoglobin 26pg (25-35) Mean Corpuscular Hemoglobin Concent 32g/dL (31-37) Red Cell Distribution Width 15.2% (11.5-14.5) Platelet Count 154x10^3/uL (140-400) Neutrophils (%) (Auto) 66% (31-73) Lymphocytes (%) (Auto) 20% (24-48) Monocytes (%) (Auto) 9% (0-9) Eosinophils (%) (Auto) 5% (0-3) Basophils (%) (Auto) 1% (0-3) Neutrophils # (Auto) 4.1x10^3uL (1.8-7.7) Lymphocytes # (Auto) 1.2x10^3/uL (1.0-4.8) Monocytes # (Auto) 0.5x10^3/uL (0.0-1.1) Eosinophils # (Auto) 0.3x10^3/uL (0.0-0.7) Basophils # (Auto) 0.1x10^3/uL (0.0-0.2) Sodium Level 139mmol/L (136-145) Potassium Level 4.0mmol/L (3.5-5.1) Chloride Level 104mmol/L (98-107) Carbon Dioxide Level 28mmol/L (21-32) Anion Gap 7 (6-14) Blood Urea Nitrogen 9mg/dL (7-20) Creatinine 0.7mg/dL (0.6-1.0) Estimated GFR (Cockcroft-Gault) 90.9 BUN/Creatinine Ratio 13 (6-20) Glucose Level 89mg/dL (70-99) Calcium Level 8.8mg/dL (8.5-10.1) Magnesium Level 2.1mg/dL (1.8-2.4) Total Bilirubin 0.3mg/dL (0.2-1.0) Aspartate Amino Transf (AST/SGOT) 15U/L (15-37) Alanine Aminotransferase (ALT/SGPT) 21U/L (14-59) Alkaline Phosphatase 49U/L (46-116) Total Protein 7.0g/dL (6.4-8.2) Albumin 3.3g/dL (3.4-5.0) Albumin/Globulin Ratio 0.9 (1.0-1.7) Triglycerides Level 123mg/dL (0-150) Cholesterol Level 199mg/dL (0-200) LDL Cholesterol, Calculated 121mg/dL (0-100) VLDL Cholesterol, Calculated 24mg/dL (0-40) Non-HDL Cholesterol Calculated 145mg/dL (0-129) HDL Cholesterol 54mg/dL (40-60) Cholesterol/HDL Ratio 3.0 Medications Current Medications Aspirin (Anel Aspirin) 325 mg 1X ONCE PO Last administered on 08/16/16 10:47 ; Start 08/16/16 at 10:55; Stop 08/16/16 at 10:56; Status DC Nitroglycerin (Nitrostat) 0.4 mg 1X ONCE SL Last administered on 08/16/16 10: 47; Start 08/16/16 at 10:55; Stop 08/16/16 at 10:56; Status DC Ondansetron HCl (Zofran) 4 mg PRN Q4HRS PRN IV NAUSEA/VOMITING; Start 08/16/16 at 10:45; Stop 08/17/16 at 10:44; Status DC Fentanyl Citrate (Fentanyl 2ml Vial) 50 mcg PRN Q1HR PRN IV PAIN; Start at 10:45; Stop 08/17/16 at 10:44; Status DC Cetirizine HCl (Zyrtec) 10 mg PRN DAILY PRN PO ALLERGIES; Start 08/16/16 at 21: 45 Diphenhydramine HCl (Benadryl) 25 mg PRN QID PRN PO ALLERGIES; Start 08/16/16 at 21:45 Levothyroxine Sodium (Synthroid) 150 mcg DAILY07 PO Last administered on 06:16; Start 08/17/16 at 07:00 Lisinopril (Prinivil) 5 mg DAILY PO Last administered on 08/18/16 07:59; Start 08/17/16 at 09:00 Regadenoson (Lexiscan) 0.4 mg 1X ONCE IV Last administered on 08/17/16 13:12 ; Start 08/17/16 at 11:20; Stop 08/17/16 at 11:21; Status DC Active Scripts Active Flonase Allergy Relief (Fluticasone Propionate) 9.9 Ml [place].susp 2 Sprays NS DAILY Xanax (Alprazolam) 0.5 Mg Tablet 1 Tab PO DAILY Zithromax (Azithromycin) 250 Mg Tablet 1 Pkg PO UD Prednisone 20 Mg Tablet 2 Tab PO DAILY Pepcid (Famotidine) 20 Mg Tablet 1 Tab PO BID Benadryl (Diphenhydramine Hcl) 25 Mg Capsule 2 Cap PO QID Epipen 2-Curtis (Epinephrine) 0.3 Mg/0.3 Ml Auto.injct 0.3 Mg IJ PRN 1X PRN Reported Lisinopril 5 Mg Tablet 1 Tab PO DAILY Synthroid (Levothyroxine Sodium) 150 Mcg Tablet 150 Mcg PO DAILY Zyrtec (Cetirizine Hcl) 10 Mg Tablet 10 Mg PO DAILY Vitals/I & O Vital Sign - Last 24 Hours 08/17/16 08/17/16 08/17/16 08/17/16 08:26 12:49 17:31 19:47 Temp 97.9 98.3 98.3 Pulse 74 101 105 96 Resp 20 20 18 B/P 135/75 135/74 134/69 Pulse Ox 95 95 94 O2 Delivery Room Air Room Air 08/17/16 08/18/16 08/18/16 20:00 06:00 07:59 Temp 97.5 Pulse 73 80 Resp 16 B/P 130/73 Pulse Ox 96 O2 Delivery Room Air Room Air Intake and Output 08/17/16 08/17/16 08/18/16 15:00 23:00 07:00 Intake Total 1000 ml 0 ml Balance 1000 ml 0 ml CHRISTINA [employer] Aug 18, 2016 08:26
--- NOTE | 2016-08-18 13:16 | RAD ---
APPROVED REPORT Test Type: Pharmacological Stress Nurse/Tech: LUIS FERNANDO Vu Test Indications: cp, abn. ekg Cardiac History: See Electronic Medical Record Medications: See Electronic Medical Record Medical History: See Electronic Medical Record Resting ECG: SR, NS inferior T abnormality, early R transition Resting Heart Rate: 80 bpm Resting Blood Pressure: 135/69mmHg Pretest Chest Pain: None Nurse/Tech Notes Consent: The procedure was explained to the patient in lay terms. Informed consent was witnessed. Mark eout was entered into [employer]. History and Stress Test performed by CANDICE Voss, DANIELLE (R) (N) Pharm. Details Pharmacologic stress testing was performed using 0.4mg per 5ml of regadenoson given intravenously ove r 7-10 seconds. Stress Symptoms Dyspnea,Flushing POST EXERCISE Reason for Termination: Infusion complete Target HR: No Max HR: 125 bpm 83% of Maximum Predicted HR: 149 bpm Exercise duration: 6 min:sec, Stage Max Blood Pressure: 168/69mmHg Blood Pressure response to exercise: Normal blood pressure response during stress. Chest Pain: Yes. RESOLVED AT 1 MIN. INTERPRETATION Stress EKG Conclusion: PVC'S WITH LEXISCAN, NO SIGNIFICANT ST CHANGES. + CP WITH LEXISCAN RESOLVED @ 1 MIN. Imaging Protocol IMAGE PROTOCOL: Rest Tc-99m/stress Tc-99m 2 days Rest: Stress: Viability: Radiopharm.Tc99m [id number] Sestamibi Dose36.2mCi 35.7mCi Img Date 08/18/2016 08/17/2016 Inj-Img [id number]. 60min. Rest Admin Site:IV - Right AntecubitalAdministrator: CANDICE Voss, DANIELLE (R)(N) Stress Admin Site: IV - Right AntecubitalAdministrator: CANDICE Voss, DANIELLE (R)(N) STRESS DATA End Diast. Vol.73.5mlAv. Heart Rlup998.0bpm LVEDV index BSA1.0mlCardiac Output0.1L/min End Syst. Vol.15.0mlCO Index BSA6.3L/min LVESV index BSA0.0mlMyocardial Gupz425.5g Eject. Cuftnjoy93.5% Stress Rates Pk. Fill Rate4.26EDV/secLVtime Pk. Fill 148.02msec Pk. Empty Rate5.65ESV/secLVtime Pk. Eqndw902.16msec 04/26 Pk. Fill1.54EDV/sec Stress Scores Regional WT0.00Summed WT0.50 Regional WM0.00Summed WM1.50 The rest and stress images show normal perfusion, normal contraction and thickening. LV Perfusion Fixed apical defect, likely due to apical thinning. LV Perf. Quant 17 Seg. SSS5.00 17 Seg. SRS1.00 17 Seg. SDS4.00 Stress Defect Extent (% LAD)5.00Rest Defect Extent (% LAD)0.00Rev. Defect Extent (% LAD)1.25 Stress Defect Extent (% LCX) 21.90Rest Defect Extent (% LCX)0.00Rev. Defect Extent (% LCX)8.15 Stress Defect Extent (% RCA)0.00Rest Defect Extent (% RCA)0.00Rev. Defect Extent (% RCA)0.00 Stress Defect Extent (% DESTINEY)9.80Rest Defect Extent (% DSETINEY)0.00Rev. Defect Extent (% DESTINEY)3.35 Other Information Quality:Good Risk Assessment: Low Risk Conclusion 1. No evidence of stress induced EKG changes. 2. Normal perfusion at stress/rest. 3. Normal EF at > 70% 4. Low risk study
--- NOTE | 2016-08-18 18:40 | DS ---
DATE OF DISCHARGE: 08/18/2016 HISTORY OF PRESENT ILLNESS: The patient is a 45-year-old female patient who was admitted with chest pain that is mostly on the left side, somewhat atypical. Two sets of cardiac enzymes that were negative. She has had an echocardiogram done, which showed that her left ventricular systolic function is normal and ejection fraction of 55-60%. There is normal left ventricular segmental wall motion, trace to mild tricuspid regurgitation. Pulmonary artery pressure is estimated at 29 mmHg. There is no evidence of significant pericardial effusion. She also underwent nuclear stress test, which basically showed that there is no evidence of stress induced EKG changes, normal perfusion at stress and rest, normal ejection fraction of more than 70%, low risk study and the outside sales advertising executive recommended that the patient can be safely discharged home to be followed as an outpatient in the office. PHYSICAL EXAMINATION: GENERAL: On examining her this afternoon, she looked well and was clearly in no apparent respiratory distress. VITAL SIGNS: Her heart rate was 73, blood pressure 130/73, temperature was 97.5, respiratory rate was 16 and oxygen saturation was 96%. HEAD, EYES, EARS, NOSE AND THROAT: Showed normocephalic, atraumatic. NECK: Supple. HEART: Showed normal first and second heart sounds with no gallop, rub or murmur. CHEST: Clear to auscultation. No crepitation or rhonchi. ABDOMEN: Distended, soft, nontender. No guarding or rigidity. No organomegaly. All hernial orifices intact. Bowel sounds normal. NEUROLOGICAL: She is awake, alert, oriented to time, place and person. Cranial nerves are intact. She moves extremities without difficulty. She ambulates without assistance or assistive devices. LABORATORY DATA: Her white cell count was 6200, hemoglobin 11.7, hematocrit 36, MCV 80 and platelet count 154,000. Her chemistry showed a serum sodium 139, potassium 4, chloride 104, bicarbonate 28, anion gap of 7, BUN 9, creatinine 0.7, estimated GFR was 91 mL per minute. Her glucose was 89. Calcium was 8.8. Total bilirubin, AST, ALT, alkaline phosphatase were normal. Total protein 7, albumin 3.3. Her serum triglycerides were 123. Total cholesterol was 99, LDL cholesterol was 121, VLDL was 24, and HDL cholesterol was 54. TSH was 1.99. Her free T4 was 1.43 ng/dL and free T3 was 2.31 picogram/mL. DISCHARGE MEDICATIONS: The patient was discharged home to continue on following medications: Alprazolam for Xanax 0.5 mg once a day, diphenhydramine 25 mg q.i.d., EpiPen for anaphylactic, famotidine 20 mg twice a day, Flonase 2 sprays to each nostril once a day, levothyroxine sodium 150 mcg once a day and lisinopril 5 mg once a day. FINAL DISCHARGE DIAGNOSES: Atypical chest pain, myocardial infarction was ruled out; hypertension, well controlled; mild dyslipidemia, hypothyroidism. RUTH MEDINA MD DR: JENNIFER/bobo JOB#: [id number] / [id number]
== END 2016-08-18 15:00 | disposition home or self-care (01) | DRG 313 ==
LOC: ER 09:49 → ICU 11:54
PROVIDERS: ADMIT Internal Medicine; ATTEND Internal Medicine
DX: R07.89 Other chest pain (principal); Z68.41 Body mass index [BMI] 40.0-44.9, adult; E03.9 Hypothyroidism, unspecified; E66.9 Obesity, unspecified; E78.5 Hyperlipidemia, unspecified; F41.9 Anxiety disorder, unspecified; I10 Essential (primary) hypertension; J30.2 Other seasonal allergic rhinitis; Z79.899 Other long term (current) drug therapy; Z82.49 Family history of ischemic heart disease and other diseases of the circulatory system; Z83.3 Family history of diabetes mellitus; Z85.850 Personal history of malignant neoplasm of thyroid; Z92.21 Personal history of antineoplastic chemotherapy; Z92.3 Personal history of irradiation; Z90.49 Acquired absence of other specified parts of digestive tract; Z98.51 Tubal ligation status
CPT/HCPCS: 36415; 71010; 78452; 80047; 80053; 80061; 83735; 84439; 84443; 84481; 84484; 85027; 87641; 93005; 93017; 93306; 96374; 96375; A9500; J2785; 99285-25

== ENCOUNTER 2016-11-07 08:12 | Emergency (ER) | payer OTHER ==
[~2016-11-07] VITALS: Ht 165.1 cm; Wt 113.4 kg
[~2016-11-07 08:12] MED LIST changes: +LISI-338 PO
--- NOTE | 2016-11-07 08:16 | ED.ADGEN ---
Past History Past Medical History: Anxiety, Depression, Hypertension Past Surgical History: No Surgical History Smoking: Non-smoker Alcohol Use: None Drug Use: None Adult General Chief Complaint Chief Complaint Allergic reaction HPI HPI Patient is a 46 year old female who presents with left-sided lower lip swelling. She states it started this morning she had the pressure teeth. She states she's had this happen to other times and once it was with little [employer] pizza since she's been avoiding that. She denies any new medications are 100 urgent. She states her last time her throat swell shut she had troubles breathing that's why she came to the ER so quickly a day. She does have an EpiPen but felt like she didn't need that yet. She denies any troubles swallowing or breathing, she denies any itchiness in her throat. She states her voice seems a little worse. She denies any tongue swelling but her left lower lip is swollen. She states before she's gotten Solu-Medrol, Pepcid, Benadryl. She is on lisinopril but doesn't get lisinopril as a cause of her allergy. Review of Systems Review of Systems Constitutional: Denies fever or chills [] Eyes: Denies change in visual acuity, redness, or eye pain [] HENT: Denies nasal congestion or sore throat [] Respiratory: Denies cough or shortness of breath [] Cardiovascular: No additional information not addressed in HPI [] GI: Denies abdominal pain, nausea, vomiting, bloody stools or diarrhea [] : Denies dysuria or hematuria [] Musculoskeletal: Denies back pain or joint pain [] Integument: Denies rash or skin lesions [] Neurologic: Denies headache, focal weakness or sensory changes [] Endocrine: Denies polyuria or polydipsia [] Current Medications Current Medications Current Medications Medications (Trade) Dose Ordered Sig/Gaurang Start Time Stop Time Status Last Admin Dose Admin Diphenhydramine HCl (Benadryl) 50 mg 1X ONCE 11/07/16 08:35 11/07/16 08:36 DC 11/07/16 09:01 50 MG Famotidine (Pepcid) 20 mg 1X ONCE 11/07/16 08:35 11/07/16 08:36 DC 11/07/16 09:01 20 MG Methylprednisolone Sodium Succinate (SOLU-Medrol 125MG VIAL) 125 mg 1X ONCE 11/07/16 08:35 11/07/16 08:36 DC 11/07/16 09:01 125 MG Allergies Allergies Allergies Coded Allergies Type Severity Reaction Last Updated Verified No Known Drug Allergies 06/19/15 No Physical Exam Physical Exam Constitutional: Well developed, well nourished, no acute distress, non-toxic appearance. [] HENT: Normocephalic, atraumatic, bilateral external ears normal, oropharynx moist, no oral exudates, nose normal. Left lower lip swollen, posterior pharynx clear, no stridor noted Eyes: PERRLA, EOMI, conjunctiva normal, no discharge. [] Neck: Normal range of motion, no tenderness, supple, no stridor. Previous scars at the base of her neck. Cardiovascular:Heart rate regular rhythm, no murmur [] Lungs & Thorax: Bilateral breath sounds clear to auscultation [] Abdomen: Bowel sounds normal, soft, no tenderness, no masses, no pulsatile masses. [] Skin: Warm, dry, no erythema, no rash. [] Back: No tenderness, no CVA tenderness. [] Extremities: No tenderness, no cyanosis, no clubbing, ROM intact, no edema. [] Neurologic: Alert and oriented X 3, normal motor function, normal sensory function, no focal deficits noted. [] Psychologic: Affect normal, judgement normal, mood normal. [] Current Patient Data Vital Signs Vital Signs Date Time Temp Pulse Resp B/P (MAP) Pulse Ox O2 Delivery O2 Flow Rate FiO2 11/07/16 10:15 69 18 128/83 (98) 94 Room Air EKG EKG [] Radiology/Procedures Radiology/Procedures [] Course & Med Decision Making Course & Med Decision Making Pertinent Labs and Imaging studies reviewed. (See chart for details) Her lip swelling has improved after Solu-Medrol Medrol Pepcid. She states her voice is back to normal now. She's being discharged home and instructed to stop taking lisinopril, she has a follow-up appointment tomorrow with her primary care physician. She is instructed to take prednisone for the next 5 days 50 mg, Pepcid AC and Benadryl. Return precautions given she is agreeable Plan B discharged in stable condition. Final Impression Final Impression Allergic reaction Problems: Harsh Disclaimer Dragon Disclaimer This electronic medical record was generated, in whole or in part, using a voice recognition dictation system. RADHA KENNEY MD Nov 07, 2016 08:16
[2016-11-07] MEDS ORDERED: methylPREDNISolone SOD SUCC PF 125 MG/2 ML VIAL. IV ONE (08:35)
[2016-11-07] MEDS ORDERED: FAMOTIDINE 20 MG/2 ML VIAL IVP ONE (08:35)
[2016-11-07] MEDS ORDERED: diphenhydrAMINE 50 MG/ML VIAL IV ONE (08:35)
[2016-11-07 10:15] VITALS: BP 128/83
== END 2016-11-07 10:35 | disposition home or self-care (01) ==
LOC: ER 08:12
DX: T78.40XA Allergy, unspecified, initial encounter (principal); I10 Essential (primary) hypertension; X58.XXXA Exposure to other specified factors, initial encounter
CPT/HCPCS: 96374; 96375; 99284; J1200; J2930; S0028

== ENCOUNTER 2017-05-03 11:51 | Emergency (ER) | payer OTHER ==
[~2017-05-03] VITALS: Ht 165.1 cm; Wt 116.8 kg
--- NOTE | 2017-05-03 12:14 | PHYS DOC ---
Past History Past Medical History: Anxiety, Depression, Hypertension Past Surgical History: No Surgical History Smoking: Non-smoker Alcohol Use: None Drug Use: None Adult General Chief Complaint Chief Complaint: UPPER EXTREMITY PAIN HPI HPI Patient is a 46 year old female who presents with complaint of left forearm pain. The patient states that she hit her left forearm on a metal frame while at work. The patient states that she is having significant pain to the proximal end of her left forearm over the left ulna. Patient rates her pain currently is 4 out of 10. Patient states she took ibuprofen prior to arrival which improved symptoms. The patient came to the emergency department by her insistence from her coworkers to have her arm checked to make sure that she did not have any significant injuries. Patient does have associated numbness traveling to her left hand as a result of the injury. Patient denies any history of prior injury to the affected area. Review of Systems Review of Systems Constitutional: Denies fever or chills [] HENT: Denies nasal congestion or sore throat [] Musculoskeletal: Left forearm pain[] Integument: Denies rash or skin lesions [] Neurologic: Denies headache, focal weakness or sensory changes [] All other systems were reviewed and found to be within normal limits, except as documented in this note. Allergies Allergies Allergies Coded Allergies Type Severity Reaction Last Updated Verified No Known Drug Allergies 06/19/15 No Physical Exam Physical Exam Constitutional: Well developed, well nourished, appears in mild to moderate discomfort. [] HENT: Normocephalic, atraumatic, bilateral external ears normal, oropharynx moist, no oral exudates, nose normal. [] Skin: Warm, dry, no erythema, no rash. [] Back: No tenderness, no CVA tenderness. [] Extremities: Mild soft tissue swelling present over the middle third of left forearm with direct tenderness to palpation, normal range of motion present at left wrist and left elbow, no cyanosis, no clubbing, no edema. [] Neurologic: Alert and oriented X 3, normal motor function, normal sensory function, no focal deficits noted. [] EKG EKG Not performed[] Radiology/Procedures Radiology/Procedures [address] [address] IMAGING REPORT Signed PATIENT: CHRISTY ECHAVARRIA ACCOUNT: [id number] : 1970 LOCATION: ER AGE: 46 SEX: F EXAM STATUS: REG ER ORD. PHYSICIAN: PAOLA HAMMOND MD REASON: left forearm injury PROCEDURE: FOREARM LEFT Indication: Hit arm on door. Pain. Technique: 2 views of the left forearm are submitted for review. No comparison is available. Findings: There is no fracture or osseous lesion apparent. There is no soft tissue swelling. There are minimal degenerative changes at the radiocapitellar joint. Impression: Negative for fracture. DICTATED AND SIGNED BY: GORGE MOTT MD DATE: 05/03/17 1219 CC: KALLI DYER DO; PAOLA HAMMOND MD ~ [] Course & Med Decision Making Course & Med Decision Making Pertinent Labs and Imaging studies reviewed. (See chart for details) Patient's x-rays negative for fracture. Patient states that she has 800 mg ibuprofen tablets at home. Advised that she take 800 mg every 8 hours as needed for pain. Advised follow-up with primary doctor in 1-2 weeks if symptoms are not improving. Advised RICE therapy for outpatient treatment. Recommended return emergency department for any worsening symptoms per patient voiced understanding and in agreement with treatment plan. Dragon Disclaimer Dragon Disclaimer This electronic medical record was generated, in whole or in part, using a voice recognition dictation system. Departure Departure: Impression: Primary Impression: Contusion of left forearm Additional Impression: Neuropraxia of left upper extremity Disposition: HOME, SELF-CARE Condition: STABLE Referrals: KALLI DYER DO (PCP) Patient Instructions: Contusion, RICE - Routine Care for Injuries Additional Instructions: Follow-up with your primary doctor in 1-2 weeks for reevaluation. You may experience continued numbness and burning in your left hand over the course of the next 3-4 weeks due to blunt injury to the nerves in your forearm. This is expected to resolve fully but will need to be followed closely by your primary doctor in case it does not improve. Return to emergency department for any worsening symptoms. Problem Qualifiers Primary Impression: Contusion of left forearm Encounter type: initial encounter Qualified Codes: S50.12XA - Contusion of left forearm, initial encounter Additional Impression: Neuropraxia of left upper extremity Encounter type: initial encounter Qualified Codes: S44.92XA - Injury of unspecified nerve at shoulder and upper arm level, left arm, initial encounter PAOLA HAMMOND MD May 03, 2017 12:14
--- NOTE | 2017-05-03 12:22 | RAD ---
Indication: Hit arm on door. Pain. Technique: 2 views of the left forearm are submitted for review. No comparison is available. Findings: There is no fracture or osseous lesion apparent. There is no soft tissue swelling. There are minimal degenerative changes at the radiocapitellar joint. Impression: Negative for fracture.
[2017-05-03 12:35] VITALS: BP 127/63
== END 2017-05-03 12:42 | disposition home or self-care (01) ==
LOC: ER 11:51
DX: S50.12XA Contusion of left forearm, initial encounter (principal); S54.92XA Injury of unspecified nerve at forearm level, left arm, initial encounter; I10 Essential (primary) hypertension; F41.9 Anxiety disorder, unspecified; F32.9 Major depressive disorder, single episode, unspecified; W22.8XXA Striking against or struck by other objects, initial encounter; Y93.89 Activity, other specified; Y92.89 Other specified places as the place of occurrence of the external cause; Y99.8 Other external cause status
CPT/HCPCS: 73090; 81025; 99284

== ENCOUNTER 2017-08-04 07:14 | Emergency (ER) | payer OTHER ==
[~2017-08-04] VITALS: Ht 160 cm; Wt 122.5 kg
--- NOTE | 2017-08-04 07:37 | EKG ---
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
[2017-08-04] MEDS ORDERED: MECLIZINE 12.5 MG TABLET. PO PRN (07:45)
[2017-08-04 08:24] LABS: BASO # 0.1 x10^3/uL (0.0-0.2); BASO % 1 % (0-3); EOS # 0.2 x10^3/uL (0.0-0.7); EOS % 2 % (0-3); HEMATOCRIT 39.1 % (36.0-47.0); HEMOGLOBIN 12.7 g/dL (12.0-15.5); LYMPH # 1.2 x10^3/uL (1.0-4.8); LYMPH % 16 % (24-48); MEAN CORPUSCULAR HEMOGLOBIN 25 pg (25-35); MEAN CORPUSCULAR HGB CONC 33 g/dL (31-37); MEAN CORPUSCULAR VOLUME 78 fL (79-100); MONO # 0.6 x10^3/uL (0.0-1.1); MONO % 8 % (0-9); NEUT # 5.4 x10^3uL (1.8-7.7); NEUT % 74 % (31-73); PLATELET COUNT 207 x10^3/uL (140-400); RED BLOOD COUNT 5.02 x10^6/uL (3.50-5.40); RED CELL DISTRIBUTION WIDTH 15.1 % (11.5-14.5); WHITE BLOOD COUNT 7.4 x10^3/uL (4.0-11.0)
[2017-08-04 08:34] LABS: ALBUMIN 3.6 g/dL (3.4-5.0); ALBUMIN/GLOBULIN RATIO 0.9 (1.0-1.7); ALK PHOS 63 U/L (46-116); ALT (SGPT) 32 U/L (14-59); ANION GAP 11 (6-14); AST (SGOT) 22 U/L (15-37); BLOOD UREA NITROGEN 13 mg/dL (7-20); BUN/CREATININE RATIO 19 (6-20); CALCIUM 8.9 mg/dL (8.5-10.1); CARBON DIOXIDE 25 mmol/L (21-32); CHLORIDE 102 mmol/L (98-107); CREATININE 0.7 mg/dL (0.6-1.0); GFR 90.5; GLUCOSE 95 mg/dL (70-99); MAGNESIUM 2.1 mg/dL (1.8-2.4); SODIUM 138 mmol/L (136-145); TOTAL BILIRUBIN 0.2 mg/dL (0.2-1.0); TOTAL PROTEIN 7.7 g/dL (6.4-8.2)
[2017-08-04] MEDS ORDERED: MECL25TA3 PO (08:51)
--- NOTE | 2017-08-04 08:51 | PHYS DOC ---
Past History Past Medical History: Anxiety, Asthma, Cancer, Depression, Hypertension, Hypothyroid Past Surgical History: Cancer Surgery, Cholecystectomy, , Tubal ligation Smoking: Non-smoker Alcohol Use: None Drug Use: None Adult General Chief Complaint Chief Complaint: DIZZY/LIGHT HEADED HPI HPI 46-year-old male patient with history of chronic vertigo states she started her menstruation 4 days ago and since then doesn't feel good. Patient complaining of episodes of positional dizziness without focal neuro deficit, nausea, blurred vision, change of hearing. She also complaining of fluctuation of her blood pressure. Patient stated her diastolic blood pressure was between 80 and 100 and systolic blood pressure was between 95 and 140s. Patient denies fever and chills, abdominal pain, cough and congestion, chest pain, shortness of breath and palpitation. 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 Review of Systems Review of Systems Constitutional: Denies fever or chills [] Eyes: Denies change in visual acuity, redness, or eye pain [] HENT: Denies nasal congestion or sore throat [] Respiratory: Denies cough or shortness of breath [] Cardiovascular: No additional information not addressed in HPI [] GI: Denies abdominal pain, nausea, vomiting, bloody stools or diarrhea [] : Denies dysuria or hematuria [] Musculoskeletal: Denies back pain or joint pain [] Integument: Denies rash or skin lesions [] Neurologic: Denies headache, focal weakness or sensory changes, reports dizziness [] Endocrine: Denies polyuria or polydipsia [] All other systems were reviewed and found to be within normal limits, except as documented in this note. Current Medications Current Medications Current Medications Medications (Trade) Dose Ordered Sig/Gaurang Start Time Stop Time Status Last Admin Dose Admin Meclizine HCl (Antivert) 25 mg PRN Q6HRS PRN 08/04/17 07:45 08/04/17 07:56 25 MG Allergies Allergies Allergies Coded Allergies Type Severity Reaction Last Updated Verified lisinopril Allergy Intermediate swelling lips/throat 08/04/17 Yes Physical Exam Physical Exam Constitutional: Well developed, well nourished, mild distress, non-toxic appearance. [] HENT: Normocephalic, atraumatic, bilateral external ears normal, oropharynx moist, no oral exudates, nose normal. [] Eyes: PERRLA, EOMI, conjunctiva normal, no discharge. [] Neck: Normal range of motion, no tenderness, supple, no stridor. [] Cardiovascular:Heart rate regular rhythm, no murmur [] Lungs & Thorax: Bilateral breath sounds clear to auscultation [] Abdomen: Bowel sounds normal, soft, no tenderness, no masses, no pulsatile masses. [] Skin: Warm, dry, no erythema, no rash. [] Back: No tenderness, no CVA tenderness. [] Extremities: No tenderness, no cyanosis, no clubbing, ROM intact, no edema. [] Neurologic: Alert and oriented X 3, normal motor function, normal sensory function, no focal deficits noted. [] Psychologic: Affect normal, judgement normal, mood normal. [] Current Patient Data Vital Signs Vital Signs Date Time Temp Pulse Resp B/P (MAP) Pulse Ox O2 Delivery O2 Flow Rate FiO2 08/04/17 08:01 79 20 121/72 (88) 96 Room Air 08/04/17 07:14 98.2 Lab Results Laboratory Tests Test 08/04/17 07:52 White Blood Count 7.4 x10^3/uL (4.0-11.0) Red Blood Count 5.02 x10^6/uL (3.50-5.40) Hemoglobin 12.7 g/dL (12.0-15.5) Hematocrit 39.1 % (36.0-47.0) Mean Corpuscular Volume 78 fL (79-100) L Mean Corpuscular Hemoglobin 25 pg (25-35) Mean Corpuscular Hemoglobin Concent 33 g/dL (31-37) Red Cell Distribution Width 15.1 % (11.5-14.5) H Platelet Count 207 x10^3/uL (140-400) Neutrophils (%) (Auto) 74 % (31-73) H Lymphocytes (%) (Auto) 16 % (24-48) L Monocytes (%) (Auto) 8 % (0-9) Eosinophils (%) (Auto) 2 % (0-3) Basophils (%) (Auto) 1 % (0-3) Neutrophils # (Auto) 5.4 x10^3uL (1.8-7.7) Lymphocytes # (Auto) 1.2 x10^3/uL (1.0-4.8) Monocytes # (Auto) 0.6 x10^3/uL (0.0-1.1) Eosinophils # (Auto) 0.2 x10^3/uL (0.0-0.7) Basophils # (Auto) 0.1 x10^3/uL (0.0-0.2) Sodium Level 138 mmol/L (136-145) Potassium Level 4.0 mmol/L (3.5-5.1) Chloride Level 102 mmol/L (98-107) Carbon Dioxide Level 25 mmol/L (21-32) Anion Gap 11 (6-14) Blood Urea Nitrogen 13 mg/dL (7-20) Creatinine 0.7 mg/dL (0.6-1.0) Estimated GFR (Cockcroft-Gault) 90.5 BUN/Creatinine Ratio 19 (6-20) Glucose Level 95 mg/dL (70-99) Calcium Level 8.9 mg/dL (8.5-10.1) Magnesium Level 2.1 mg/dL (1.8-2.4) Total Bilirubin 0.2 mg/dL (0.2-1.0) Aspartate Amino Transferase (AST) 22 U/L (15-37) Alanine Aminotransferase (ALT) 32 U/L (14-59) Alkaline Phosphatase 63 U/L (46-116) Creatine Kinase 27 U/L (26-192) Creatine Kinase MB (Mass) < 0.5 ng/mL (0.0-3.6) Creatine Kinase MB Relative Index 1.9 % (0-4) Troponin I Quantitative < 0.017 ng/mL (0-0.055) Total Protein 7.7 g/dL (6.4-8.2) Albumin 3.6 g/dL (3.4-5.0) Albumin/Globulin Ratio 0.9 (1.0-1.7) L EKG EKG []Interpreted by me. EKG at 0733 showed normal sinus rhythm at rate of 76, no acute ST and T wave abnormality. Radiology/Procedures Radiology/Procedures [] Course & Med Decision Making Course & Med Decision Making Pertinent Labs reviewed. (See chart for details) Evaluation of patient in ER showed 46-year-old female patient with history of chronic vertigo complaining of positional dizziness and fluctuation of palpitation for the last 4 days. Patient had unremarkable physical exam and labs. Patient had blood pressure 140s over 80s at arrival to ER that gradually decreased to 120s over 70s. Patient felt better with meclizine given in ER and instructed to increase fluid intake and follow up with her primary care physician. 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 [] Dragon Disclaimer Dragon Disclaimer This electronic medical record was generated, in whole or in part, using a voice recognition dictation system. Departure Departure: Impression: Primary Impression: Dizziness Additional Impression: Uncontrolled hypertension Disposition: HOME, SELF-CARE (At 0850) Condition: IMPROVED Referrals: KALLI DYER DO (PCP) Patient Instructions: Dehydration, Adult, Dizziness Additional Instructions: Drink plenty of liquids Follow-up with your primary care physician in 3-5 days Return to ER if not getting better Scripts Meclizine Hcl (MECLIZINE HCL) 25 Mg Tablet 1 TAB PO PRN TID, #30 TAB Prov: AKIKO WOODS MD 08/04/17 Problem Qualifiers AKIKO WOODS MD Aug 04, 2017 08:51
[2017-08-04 08:55] VITALS: BP 113/79
[2017-08-04 08:56] LABS: BILIRUBIN,URINE NEG (NEG); CLARITY,URINE CLEAR; COLOR,URINE STRAW; GLUCOSE,URINE NEG (NEG); NITRITE,URINE NEG (NEG); UROBILINOGEN,URINE 0.2 mg/dL (0.2 mg/dL)
== END 2017-08-04 09:00 | disposition home or self-care (01) ==
LOC: ER 07:14
DX: I99.8 Other disorder of circulatory system (principal); R42 Dizziness and giddiness; I10 Essential (primary) hypertension; F41.9 Anxiety disorder, unspecified; J45.909 Unspecified asthma, uncomplicated; F32.9 Major depressive disorder, single episode, unspecified; E03.9 Hypothyroidism, unspecified; Z88.8 Allergy status to other drugs, medicaments and biological substances
CPT/HCPCS: 36415; 80053; 81003; 82553; 83735; 84484; 85025; 93005; 99285; J8597

== ENCOUNTER 2017-12-13 17:21 | Emergency (ER) | payer OTHER ==
[~2017-12-13] VITALS: Ht 165.1 cm; Wt 127.0 kg
[~2017-12-13 17:21] MED LIST changes: +MECL25TA3 PO
--- NOTE | 2017-12-13 18:03 | EKG ---
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
[2017-12-13] MEDS ORDERED: IV NORMAL SALINE 1,000ML 1,000 ML IV SCH (18:14)
[2017-12-13] MEDS ORDERED: MECLIZINE 12.5 MG TABLET. PO STA (18:19)
[2017-12-13 18:33] LABS: BASO # 0.1 x10^3/uL (0.0-0.2); BASO % 1 % (0-3); EOS # 0.1 x10^3/uL (0.0-0.7); EOS % 1 % (0-3); HEMOGLOBIN 12.3 g/dL (12.0-15.5); LYMPH # 0.9 x10^3/uL (1.0-4.8); LYMPH % 13 % (24-48); MEAN CORPUSCULAR HEMOGLOBIN 25 pg (25-35); MEAN CORPUSCULAR HGB CONC 32 g/dL (31-37); MEAN CORPUSCULAR VOLUME 79 fL (79-100); MONO # 0.6 x10^3/uL (0.0-1.1); MONO % 9 % (0-9); NEUT # 5.6 x10^3uL (1.8-7.7); NEUT % 76 % (31-73); PLATELET COUNT 189 x10^3/uL (140-400); RED BLOOD COUNT 4.84 x10^6/uL (3.50-5.40); RED CELL DISTRIBUTION WIDTH 15.8 % (11.5-14.5); WHITE BLOOD COUNT 7.3 x10^3/uL (4.0-11.0)
[2017-12-13 18:41] LABS: ALBUMIN 3.5 g/dL (3.4-5.0); ALBUMIN/GLOBULIN RATIO 0.9 (1.0-1.7); CALCIUM 8.9 mg/dL (8.5-10.1); CREATININE 0.8 mg/dL (0.6-1.0); GFR 77.2; POTASSIUM 3.9 mmol/L (3.5-5.1); TOTAL BILIRUBIN 0.3 mg/dL (0.2-1.0); TOTAL PROTEIN 7.3 g/dL (6.4-8.2)
--- NOTE | 2017-12-13 18:44 | PHYS DOC ---
Past History Past Medical History: Anxiety, Asthma, Cancer, Depression, Hypertension, Hypothyroid Past Surgical History: Cancer Surgery, Cholecystectomy, , Tubal ligation Smoking: Non-smoker Alcohol Use: None Drug Use: None Adult General Chief Complaint Chief Complaint: DIZZY/LIGHT HEADED HPI HPI Patient is a 47 year old female who presents with complaint of dizziness. Patient states that her symptoms started earlier today. The patient states she has history of intermittent vertigo and headache. Patient denies any fevers. The patient states that she also has seen spots in her right eye off-and-on. The patient states that her symptoms seem to be improving at this time but are still present. Patient denies any unilateral weakness. Patient states she thought she had drooping of the right eyelid earlier but denied any facial droop and states that currently this has resolved. Denies chest pain, shortness of breath, or vomiting. Patient has abdominal discomfort but states that she is currently on therapy for treatment of diverticulitis. Review of Systems Review of Systems Constitutional: Denies fever or chills [] Eyes: Spots in vision, denies eye pain or redness[] HENT: Denies nasal congestion or sore throat [] Respiratory: Denies cough or shortness of breath [] Cardiovascular: Denies chest pain or edema[] GI: Denies abdominal pain, nausea, vomiting, bloody stools or diarrhea [] : Denies dysuria or hematuria [] Musculoskeletal: Denies back pain or joint pain [] Integument: Denies rash or skin lesions [] Neurologic: Headache, dizziness, denies focal weakness or sensory changes[] All other systems were reviewed and found to be within normal limits, except as documented in this note. Current Medications Current Medications Current Medications Medications (Trade) Dose Ordered Sig/Gaurang Start Time Stop Time Status Last Admin Dose Admin Meclizine HCl (Antivert) 50 mg 1X STAT 12/13/17 18:19 12/13/17 18:20 DC 12/13/17 18:30 50 MG Sodium Chloride 1,000 ml @ 1,000 mls/hr Q1H 12/13/17 18:14 12/13/17 19:13 12/13/17 18:29 1,000 MLS/HR Allergies Allergies Allergies Coded Allergies Type Severity Reaction Last Updated Verified lisinopril Allergy Intermediate swelling lips/throat 4/13/18 Yes Physical Exam Physical Exam Constitutional: Well developed, well nourished, no acute distress, non-toxic appearance. [] HENT: Normocephalic, atraumatic, bilateral external ears normal, oropharynx moist, no oral exudates, nose normal. [] Eyes: PERRLA, EOMI, conjunctiva normal, no discharge. [] Neck: Normal range of motion, no tenderness, supple, no stridor. [] Cardiovascular:Heart rate regular rhythm, no murmur [] Lungs & Thorax: Bilateral breath sounds clear to auscultation [] Abdomen: Bowel sounds normal, soft, no tenderness, no masses, no pulsatile masses. [] Skin: Warm, dry, no erythema, no rash. [] Back: No tenderness, no CVA tenderness. [] Extremities: No tenderness, no cyanosis, no clubbing, ROM intact, no edema. [] Neurologic: Alert and oriented X 3, normal motor function, normal sensory function, no focal deficits noted. [] Current Patient Data Vital Signs Vital Signs Date Time Temp Pulse Resp B/P (MAP) Pulse Ox O2 Delivery O2 Flow Rate FiO2 12/13/17 17:21 97.9 92 20 97 Room Air Lab Results Laboratory Tests Test 12/13/17 18:05 White Blood Count 7.3 x10^3/uL (4.0-11.0) Red Blood Count 4.84 x10^6/uL (3.50-5.40) Hemoglobin 12.3 g/dL (12.0-15.5) Hematocrit 38.0 % (36.0-47.0) Mean Corpuscular Volume 79 fL (79-100) Mean Corpuscular Hemoglobin 25 pg (25-35) Mean Corpuscular Hemoglobin Concent 32 g/dL (31-37) Red Cell Distribution Width 15.8 % (11.5-14.5) H Platelet Count 189 x10^3/uL (140-400) Neutrophils (%) (Auto) 76 % (31-73) H Lymphocytes (%) (Auto) 13 % (24-48) L Monocytes (%) (Auto) 9 % (0-9) Eosinophils (%) (Auto) 1 % (0-3) Basophils (%) (Auto) 1 % (0-3) Neutrophils # (Auto) 5.6 x10^3uL (1.8-7.7) Lymphocytes # (Auto) 0.9 x10^3/uL (1.0-4.8) L Monocytes # (Auto) 0.6 x10^3/uL (0.0-1.1) Eosinophils # (Auto) 0.1 x10^3/uL (0.0-0.7) Basophils # (Auto) 0.1 x10^3/uL (0.0-0.2) Sodium Level 141 mmol/L (136-145) Potassium Level 3.9 mmol/L (3.5-5.1) Chloride Level 105 mmol/L (98-107) Carbon Dioxide Level 26 mmol/L (21-32) Anion Gap 10 (6-14) Blood Urea Nitrogen 11 mg/dL (7-20) Creatinine 0.8 mg/dL (0.6-1.0) Estimated GFR (Cockcroft-Gault) 77.2 BUN/Creatinine Ratio 14 (6-20) Glucose Level 93 mg/dL (70-99) Calcium Level 8.9 mg/dL (8.5-10.1) Magnesium Level 2.0 mg/dL (1.8-2.4) Total Bilirubin 0.3 mg/dL (0.2-1.0) Aspartate Amino Transferase (AST) 40 U/L (15-37) H Alanine Aminotransferase (ALT) 52 U/L (14-59) Alkaline Phosphatase 73 U/L (46-116) Total Protein 7.3 g/dL (6.4-8.2) Albumin 3.5 g/dL (3.4-5.0) Albumin/Globulin Ratio 0.9 (1.0-1.7) L EKG EKG Interpreted by me: Heart rate 93, sinus rhythm, normal intervals, leftward axis , no acute ST/T-wave abnormalities present[] Radiology/Procedures Radiology/Procedures [address] [address] IMAGING REPORT Signed PATIENT: CHRISTY ECHAVARRIA ACCOUNT: [id number] : 1970 LOCATION: ER AGE: 47 SEX: F EXAM STATUS: PRE ER ORD. PHYSICIAN: PAOLA HAMMOND MD REASON: Dizziness PROCEDURE: CT HEAD WO CONTRAST CT HEAD WO CONTRAST dated 12/13/2017 6:24 PM Indication:..Dizziness. Comparison: No comparison is available. Technique: Contiguous axial imaging the head was performed from skull base to vertex. One or more of the following individualized dose reduction techniques were utilized for this examination: 1. Automated exposure control 2. Adjustment of the mA and/or kV according to patient size 3. Use of iterative reconstruction technique Findings: Ventricles and sulci are within normal limits for age. No midline shift or mass effect. Brain parenchyma is of normal attenuation. No hemorrhage or extra-axial collection. Posterior fossa and brainstem unremarkable. Visualized paranasal sinuses and mastoid air cells are clear. No apparent calvarial abnormality. IMPRESSION: No evidence of acute intracranial abnormality. Electronically signed by: Hal Cruz MD (12/13/2017 6:48 PM) [facility] [place] DICTATED AND SIGNED BY: HAL CRUZ MD DATE: 12/13/171846 CC: KALLI DYER DO; PAOLA HAMMOND MD ~ [address] [address] IMAGING REPORT Signed PATIENT: CHRISTY ECHAVARRIA ACCOUNT: [id number] : 1970 LOCATION: ER AGE: 47 SEX: F EXAM STATUS: PRE ER ORD. PHYSICIAN: PAOLA HAMMOND MD REASON: dizziness, r/o acute cardiopulmonary abnormality PROCEDURE: PORTABLE CHEST 1V PORTABLE CHEST 1V dated 12/13/2017 6:14 PM. Comparison: 08/16/2016 Clinical Indication: Dizziness, r/o acute cardiopulmonary abnormality. Findings: Single upright portable exam performed. Heart and mediastinal contours are stable. There is elevation of right hemidiaphragm, unchanged. Lungs are clear without focal consolidation. Vascular interstitium within normal limits. No pleural effusion or pneumothorax. Surgical clips at the supraclavicular region on the right, unchanged. Impression: No acute radiographic abnormality. Stable findings compared to 08/16/2016. Electronically signed by: Hal Cruz MD (12/13/2017 6:49 PM) [id number] DICTATED AND SIGNED BY: HAL CRUZ MD DATE: 12/13/171847 CC: KALLI DYER DO; PAOLA HAMMOND MD ~ [] Course & Med Decision Making Course & Med Decision Making Pertinent Labs and Imaging studies reviewed. (See chart for details) Patient given IV fluids and meclizine in the emergency department. Patient states her symptoms have significantly improved and states her vision has improved. CT head and blood work unremarkable. Patient's symptoms appear consistent with vertigo and likely migrainous phenomenon. The patient was advised to continue with oral hydration at home. The patient will be referred to ophthalmology for follow-up tomorrow for further assessment of her vision. She states that she has had vision changes for several months in the right eye. Advised return to emergency department for any worsening symptoms. Patient was understanding and agreement with treatment plan. Dragon Disclaimer Dragon Disclaimer This electronic medical record was generated, in whole or in part, using a voice recognition dictation system. Departure Departure: Impression: Primary Impression: Vertigo Additional Impressions: Atypical migraine Change in vision Disposition: 01 HOME, SELF-CARE Condition: IMPROVED Referrals: KALLI DYER DO (PCP) DOM FORTE DO Patient Instructions: Vertigo Additional Instructions: Call the office of Dr. Forte tomorrow for further evaluation of your vision in the next 1-2 days. Continue with meclizine for treatment of vertigo symptoms and be sure to drink plenty of fluids. Return to emergency department for any worsening symptoms. Problem Qualifiers PAOLA HAMMOND MD Dec 13, 2017 18:43
--- NOTE | 2017-12-13 18:51 | RAD ---
CT HEAD WO CONTRAST dated 12/13/2017 6:24 PM Indication:..Dizziness. Comparison: No comparison is available. Technique: Contiguous axial imaging the head was performed from skull base to vertex. One or more of the following individualized dose reduction techniques were utilized for this examination: 1. Automated exposure control 2. Adjustment of the mA and/or kV according to patient size 3. Use of iterative reconstruction technique Findings: Ventricles and sulci are within normal limits for age. No midline shift or mass effect. Brain parenchyma is of normal attenuation. No hemorrhage or extra-axial collection. Posterior fossa and brainstem unremarkable. Visualized paranasal sinuses and mastoid air cells are clear. No apparent calvarial abnormality. IMPRESSION: No evidence of acute intracranial abnormality. Electronically signed by: Hal Carlos MD (12/13/2017 6:48 PM) [id number]
--- NOTE | 2017-12-13 18:52 | RAD ---
PORTABLE CHEST 1V dated 12/13/2017 6:14 PM. Comparison: 08/16/2016 Clinical Indication: Dizziness, r/o acute cardiopulmonary abnormality. Findings: Single upright portable exam performed. Heart and mediastinal contours are stable. There is elevation of right hemidiaphragm, unchanged. Lungs are clear without focal consolidation. Vascular interstitium within normal limits. No pleural effusion or pneumothorax. Surgical clips at the supraclavicular region on the right, unchanged. Impression: No acute radiographic abnormality. Stable findings compared to 08/16/2016. Electronically signed by: Hal Carlos MD (12/13/2017 6:49 PM) [facility]
[2017-12-13 19:19] LABS: BILIRUBIN,URINE NEG (NEG); CLARITY,URINE CLOUDY; COLOR,URINE PINK; GLUCOSE,URINE NEG (NEG)
[2017-12-13 19:20] LABS: BACTERIA,URINE 0 /HPF (0-FEW); NITRITE,URINE NEG (NEG); RBC,URINE >40 /HPF (0-2); SQUAMOUS EPITHELIAL CELL,UR OCC /LPF; UROBILINOGEN,URINE 0.2 mg/dL (0.2 mg/dL); WBC,URINE 0 /HPF (0-4)
[2017-12-13 20:55] VITALS: BP 123/82
== END 2017-12-13 20:55 | disposition home or self-care (01) ==
LOC: ER 17:21
DX: G43.909 Migraine, unspecified, not intractable, without status migrainosus (principal); R42 Dizziness and giddiness; H53.8 Other visual disturbances; F41.9 Anxiety disorder, unspecified; J45.909 Unspecified asthma, uncomplicated; F32.9 Major depressive disorder, single episode, unspecified; I10 Essential (primary) hypertension; E03.9 Hypothyroidism, unspecified; Z88.8 Allergy status to other drugs, medicaments and biological substances
CPT/HCPCS: 36415; 70450; 71045; 80053; 81001; 83735; 85025; 87086; 93005; 96360; 96361; 99285; J8597; J7030

== ENCOUNTER → 2019-03-05 | Outpatient (CLI) | payer OTHER ==
--- NOTE | 2019-03-06 16:32 | CARD ---
MR#: [id number] Date of Study: 03/05/2019 Ordering Physician: HUGO MEDINA, Referring Physician: HUGO MEDINA, Tech: Mounika Hill APPROVED REPORT EXAM: Two-dimensional and M-mode echocardiogram with Doppler and color Doppler. Other Information Quality : AverageHR: 76bpm INDICATION Hypertension/HCVD Cardiac Disease: CAD RISK FACTORS Asthma 2D DIMENSIONS RVDd3.0 (2.9-3.5cm)Left Atrium(2D)3.9 (1.6-4.0cm) IVSd1.2 (0.7-1.1cm)Aortic Root(2D)2.9 (2.0-3.7cm) LVDd4.6 (3.9-5.9cm)LVOT Diameter2.2 (1.8-2.4cm) PWd1.4 (0.7-1.1cm)LVDs2.9 (2.5-4.0cm) FS (%) 36.6 %SV65.6 ml LVEF(%)66.4 (>50%) Aortic Valve AoV Peak Kingsley.143.2cm/sAoV VTI28.3cm AO Peak GR.8.2mmHgLVOT Peak Kingsley.94.1cm/s LVOT VTI 18.46cmAO Mean GR.4mmHg KRYSTAL (VMAX)2.83ar8UGL (VTI)2.51cm2 Mitral Valve MV E Awlhrhci53.4cm/sMV DECEL SJIP602aw MV A Ztejuyau65.1cm/sE/A Ratio1.2 Pulmonary Valve PV Peak Fvyofxzr680.9cm/sPV Peak Grad.5mmHg Tricuspid Valve TR P. Jwsqaupw668zd/sRAP CBPSYFYI0nrJm TR Peak Gr.12qaGuFGIH73zwWv Pulmonary Vein S1 Eryrlhnj66.6cm/sD2 Oiprrgya84.3cm/s LEFT VENTRICLE The left ventricle is normal size. There is moderate concentric left ventricular hypertrophy. The lef t ventricular systolic function is normal and the ejection fraction is within normal range. The Eject ion Fraction is 55-60%. There is normal LV segmental wall motion. Transmitral Doppler flow pattern is Grade II-pseudonormal filling dynamics. RIGHT VENTRICLE The right ventricle is moderately dilated. There is normal right ventricular wall thickness. The righ t ventricular systolic function is normal. ATRIA The left atrium size is normal. The right atrium size is normal. The interatrial septum is intact wit h no evidence for an atrial septal defect or patent foramen ovale as noted on 2-D or Doppler imaging. AORTIC VALVE The aortic valve is thickened but opens well. Doppler and Color Flow revealed no significant aortic r egurgitation. There is no significant aortic valvular stenosis. MITRAL VALVE The mitral valve is normal in structure and function. There is no evidence of mitral valve prolapse. There is no mitral valve stenosis. Doppler and Color-flow revealed trace mitral regurgitation. TRICUSPID VALVE The tricuspid valve is normal in structure and function. Doppler and Color Flow revealed trace tricus pid regurgitation with an estimated PAP of 26 mmHg. There is no tricuspid valve stenosis. PULMONIC VALVE The pulmonic valve is not well visualized. Doppler and Color Flow revealed no pulmonic valvular regur gitation. There is no pulmonic valvular stenosis. GREAT VESSELS The aortic root is normal in size. The IVC is normal in size and collapses >50% with inspiration. PERICARDIAL EFFUSION There is no evidence of significant pericardial effusion. Critical Notification Critical Value: No <Conclusion> The left ventricular systolic function is normal and the ejection fraction is within normal range. Th e Ejection Fraction is 55-60%. There is normal LV segmental wall motion. The right ventricle is moderately dilated. Signed by : Hugo Medina, Electronically Approved : 03/05/2019 09:56:46
== END | disposition home or self-care (01) ==
LOC: ECHO 08:42
PROVIDERS: ATTEND Internal Medicine Cardiovascular Disease
DX: I11.9 Hypertensive heart disease without heart failure (principal)
CPT/HCPCS: 93306

== ENCOUNTER 2020-01-23 08:11 | Emergency (ER) | payer OTHER ==
[~2020-01-23] VITALS: Ht 165.1 cm; Wt 131.0 kg
[~2020-01-23 08:11] MED LIST changes: -CETI10TA22 PO; +CETI10TA74 PO; +MECL-75 PO; -MECL25TA3 PO
--- NOTE | 2020-01-23 08:35 | PHYS DOC ---
Past History Past Medical History: Anxiety, Asthma, Cancer, Depression, Hypertension, Hypothyroid Past Surgical History: Cancer Surgery, Cholecystectomy, , Tubal ligation Additional Past Surgical Histo: THYROIDECTOMY Smoking: Non-smoker Alcohol Use: None Drug Use: None General Adult EDM: Chief Complaint: ABDOMINAL PAIN HPI: HPI: Patient is a 49-year-old female who presented to ER today for evaluation of left upper quadrant abdominal pain has been going on for 1 week associate with some nausea. Patient denies any chest pain, no cough, no fever. Patient denies any urinary symptom. Patient had her gallbladder taken out a few years back. Review of Systems: Review of Systems: Constitutional: Denies fever or chills Eyes: Denies change in visual acuity HENT: Denies nasal congestion or sore throat Respiratory: Denies cough or shortness of breath Cardiovascular: Denies chest pain or edema GI: Positive for abdominal pain and nausea, no vomiting, no diarrhea. : Denies dysuria Musculoskeletal: Denies back pain or joint pain Integument: Denies rash Neurologic: Denies headache, focal weakness or sensory changes Endocrine: Denies polyuria or polydipsia Lymphatic: Denies swollen glands Psychiatric: Denies depression or anxiety Heart Score: Risk Factors: Risk Factors: DM, Current or recent (<one month) smoker, HTN, HLP, family history of CAD, obesity. Risk Scores: Score 0 - 3: 2.5% MACE over next 6 weeks - Discharge Home Score 4 - 6: 20.3% MACE over next 6 weeks - Admit for Clinical Observation Score 7 - 10: 72.7% MACE over next 6 weeks - Early Invasive Strategies Allergies: Allergies: Allergies Coded Allergies Type Severity Reaction Last Updated Verified lisinopril Allergy Intermediate swelling lips/throat 08/04/17 Yes Physical Exam: PE: Constitutional: Well developed, well nourished, no acute distress, non-toxic appearance. [] HENT: Normocephalic, atraumatic, bilateral external ears normal, oropharynx moist, no oral exudates, nose normal. [] Eyes: PERRLA, EOMI, conjunctiva normal, no discharge. [] Neck: Normal range of motion, no tenderness, supple, no stridor. [] Cardiovascular:Heart rate regular rhythm, no murmur [] Lungs & Thorax: Bilateral breath sounds clear to auscultation [] Abdomen: Bowel sounds normal, soft, There is tenderness to palpation in LUQ, no masses, no pulsatile masses. [] Skin: Warm, dry, no erythema, no rash. [] Back: No tenderness, no CVA tenderness. [] Extremities: No tenderness, no cyanosis, no clubbing, ROM intact, no edema. [] Neurologic: Alert and oriented X 3, normal motor function, normal sensory function, no focal deficits noted. [] Psychologic: Affect normal, judgement normal, mood normal. [] Current Patient Data: Labs: Laboratory Tests Test 01/23/20 08:24 01/23/20 08:34 White Blood Count 7.6 x10^3/uL Red Blood Count 4.94 x10^6/uL Hemoglobin 12.4 g/dL Hematocrit 39.6 % Mean Corpuscular Volume 80 fL Mean Corpuscular Hemoglobin 25 pg Mean Corpuscular Hemoglobin Concent 31 g/dL Red Cell Distribution Width 15.6 % Platelet Count 218 x10^3/uL Neutrophils (%) (Auto) 71 % Lymphocytes (%) (Auto) 17 % Monocytes (%) (Auto) 9 % Eosinophils (%) (Auto) 2 % Basophils (%) (Auto) 1 % Neutrophils # (Auto) 5.5 x10^3uL Lymphocytes # (Auto) 1.3 x10^3/uL Monocytes # (Auto) 0.7 x10^3/uL Eosinophils # (Auto) 0.1 x10^3/uL Basophils # (Auto) 0.1 x10^3/uL Sodium Level 141 mmol/L Potassium Level 3.9 mmol/L Chloride Level 104 mmol/L Carbon Dioxide Level 28 mmol/L Anion Gap 9 Blood Urea Nitrogen 14 mg/dL Creatinine 0.8 mg/dL Estimated GFR (Cockcroft-Gault) 76.6 BUN/Creatinine Ratio 18 Glucose Level 99 mg/dL Calcium Level 9.3 mg/dL Total Bilirubin 0.3 mg/dL Aspartate Amino Transf (AST/SGOT) 12 U/L Alanine Aminotransferase (ALT/SGPT) 20 U/L Alkaline Phosphatase 65 U/L Total Protein 7.7 g/dL Albumin 3.6 g/dL Albumin/Globulin Ratio 0.9 Lipase 107 U/L Urine Collection Type Unknown Urine Color Yellow Urine Clarity Clear Urine pH 6.0 Urine Specific Keystone >=1.030 Urine Protein Neg Urine Glucose (UA) Neg mg/dL Urine Ketones (Stick) Trace mg/dL Urine Blood Neg Urine Nitrite Neg Urine Bilirubin Neg Urine Urobilinogen Dipstick 1.0 mg/dL Urine Leukocyte Esterase Neg Urine RBC 1-2 /HPF Urine WBC 1-4 /HPF Urine Squamous Epithelial Cells Mod /LPF Urine Bacteria Few /HPF Urine Mucus Mod /LPF Current Medications Medications (Trade) Dose Ordered Sig/Gaurang Route PRN Reason Start Time Stop Time Status Last Admin Dose Admin Ondansetron HCl (Zofran) 4 mg 1X ONCE IVP 01/23/20 09:15 01/23/20 09:16 DC 01/23/20 09:13 Morphine Sulfate (Morphine 4mg Syringe) 4 mg 1X ONCE IV 01/23/20 09:15 01/23/20 09:16 DC 01/23/20 09:13 Iohexol (Omnipaque 300 Mg/ml) 75 ml 1X ONCE IV 01/23/20 09:15 01/23/20 09:23 DC 01/23/20 09:29 Info (Do NOT chart on this entry -- for MONITORING) 1 each PRN DAILY PRN MC SEE COMMENTS 01/23/20 09:30 01/25/20 09:29 Vital Signs: Vital Signs Date Time Temp Pulse Resp B/P (MAP) Pulse Ox O2 Delivery O2 Flow Rate FiO2 01/23/20 08:22 97.1 80 18 137/81 (99) 99 Room Air EKG: EKG: [] Radiology/Procedures: Radiology/Procedures: [][address] [address] IMAGING REPORT Signed PATIENT: CHRISTY ECHAVARRIA ACCOUNT: [id number] : 1970 LOCATION: ER AGE: 49 SEX: F EXAM STATUS: REG ER ORD. PHYSICIAN: AKHIL NUNEZ DO REASON: LEFT SIDE ABDOMINAL PAIN FOR A WEEK PROCEDURE: CT ABD PELV W/ IV CONTRST ONLY EXAM: CT Abdomen and Pelvis with IV contrast INDICATION: Reason: LEFT SIDE ABDOMINAL PAIN FOR A WEEK / Spl. Instructions: / History: TECHNIQUE: Multi-detector row CT images were acquired from the lung bases through the abdomen and pelvis with the use of IV contrast. Sagittal and coronal images were acquired from the transaxial data. All CT scans performed at this facility utilize dose optimization techniques as appropriate to the exam, including the following: Automated exposure control and adjustment of the mA and/or KV according to patient size (this includes techniques or standardized protocols for targeted exams where dose is indication/reason for exam). IV CONTRAST: Administered ORAL CONTRAST: Not administered COMPARISON: None FINDINGS: LOWER CHEST: Unremarkable LIVER: Unremarkable BILIARY SYSTEM: Gallbladder is surgically absent. Bile ducts are not dilated. PANCREAS: Unremarkable SPLEEN: Unremarkable ADRENALS: Unremarkable KIDNEYS & URETERS: Unremarkable BLADDER: Unremarkable REPRODUCTIVE ORGANS: Unremarkable GASTROINTESTINAL: The stomach, small bowel, and colon are unremarkable. The appendix is normal. MESENTERY/PERITONEUM/RETROPERITONEUM: Unremarkable VASCULAR: Unremarkable LYMPH NODES: No adenopathy OSSEOUS & SOFT TISSUES: Unremarkable IMPRESSION: Unremarkable CT of the abdomen and pelvis post cholecystectomy. Electronically signed by: Paula Ledezma MD (01/23/2020 9:45 AM) [id number] DICTATED AND SIGNED BY: PAULA LEDEZMA MD DATE: 01/23/20 0945 CC: KALLI DYER DO; AKHIL NNUEZ DO ~ Course & Med Decision Making: Course & Med Decision Making Pertinent Labs and Imaging studies reviewed. (See chart for details) Patient is a 49-year-old female who was evaluated in ER due to abdominal pain, her lab work and CT scan did not show any acute problem. Patient will be discharged home she will need to follow-up with a GI specialist for further evaluation and treatment. Patient is amenable to plan of care. Dragan Disclaimer: Dragan Disclaimer: This electronic medical record was generated, in whole or in part, using a voice recognition dictation system. Departure Departure: Impression: Primary Impression: Abdominal pain Disposition: HOME/RESIDENCE PRIOR TO ADM Condition: STABLE Referrals: KALLI DYER DO (PCP) PLEASE FOLLOW UP WITH YOUR DOCTOR FOR A REFERRAL TO GI SPECIALIST FOR FURTHER EVALUATION AND TREATMENT. Patient Instructions: Abdominal Pain Additional Instructions: Thank you for visiting our Emergency Department. We appreciate you trusting us with your care. If any additional problems come up don't hesitate to return to visit us. Please follow up with your primary care provider so they can plan additional care if needed and know about the problem that you had. If symptoms worsen come back to the Emergency Department. Any concerning symptoms that start such as chest pain, shortness of air, weakness or numbness on one side of the body, running high fevers or any other concerning symptoms return to the ER. Scripts Sucralfate (CARAFATE) 1 Gm Tablet 1 TAB PO QID for GASTRITIS for 14 Days, #56 TAB 0 Refills Prov: AKHIL NUNEZ DO 01/23/20 Omeprazole Magnesium (PRILOSEC OTC) 20 Mg Tablet. 1 TAB PO DAILY for GASTRITIS for 30 Days, #30 TAB 0 Refills Prov: AKHIL NUNEZ DO 01/23/20 AKHIL NUNEZ DO Jan 23, 2020 08:35
[2020-01-23 08:49] LABS: BASO # 0.1 x10^3/uL (0.0-0.2); BASO % 1 % (0-3); EOS # 0.1 x10^3/uL (0.0-0.7); EOS % 2 % (0-3); HEMATOCRIT 39.6 % (36.0-47.0); HEMOGLOBIN 12.4 g/dL (12.0-15.5); LYMPH # 1.3 x10^3/uL (1.0-4.8); LYMPH % 17 % (24-48); MEAN CORPUSCULAR HEMOGLOBIN 25 pg (25-35); MEAN CORPUSCULAR HGB CONC 31 g/dL (31-37); MEAN CORPUSCULAR VOLUME 80 fL (79-100); MONO # 0.7 x10^3/uL (0.0-1.1); MONO % 9 % (0-9); NEUT # 5.5 x10^3uL (1.8-7.7); NEUT % 71 % (31-73); PLATELET COUNT 218 x10^3/uL (140-400); RED BLOOD COUNT 4.94 x10^6/uL (3.50-5.40); RED CELL DISTRIBUTION WIDTH 15.6 % (11.5-14.5); WHITE BLOOD COUNT 7.6 x10^3/uL (4.0-11.0)
[2020-01-23 08:55] LABS: CALCIUM 9.3 mg/dL (8.5-10.1); CREATININE 0.8 mg/dL (0.6-1.0); GFR 76.6; POTASSIUM 3.9 mmol/L (3.5-5.1)
[2020-01-23 09:01] LABS: ALBUMIN 3.6 g/dL (3.4-5.0); ALBUMIN/GLOBULIN RATIO 0.9 (1.0-1.7); TOTAL BILIRUBIN 0.3 mg/dL (0.2-1.0); TOTAL PROTEIN 7.7 g/dL (6.4-8.2)
[2020-01-23 09:12] LABS: BILIRUBIN,URINE NEG (NEG); CLARITY,URINE CLEAR; COLOR,URINE YELLOW; GLUCOSE,URINE NEG (NEG); NITRITE,URINE NEG (NEG)
[2020-01-23 09:13] LABS: BACTERIA,URINE FEW /HPF (0-FEW); SQUAMOUS EPITHELIAL CELL,UR MOD /LPF
[2020-01-23] MEDS ORDERED: ONDANSETRON PF 4 MG/2 ML VIAL. IVP ONE (09:15)
[2020-01-23] MEDS ORDERED: IOHEXOL 300 MG/ML 75 ML VIAL. IV ONE (09:15)
[2020-01-23] MEDS ORDERED: MORPHINE SULFATE 4 MG/ML DISP.SYRIN. IV ONE (09:15)
[2020-01-23] MEDS ORDERED: CONTRAST GIVEN. MC PRN (09:30)
--- NOTE | 2020-01-23 09:48 | RAD ---
EXAM: CT Abdomen and Pelvis with IV contrast INDICATION: Reason: LEFT SIDE ABDOMINAL PAIN FOR A WEEK / Spl. Instructions: / History: TECHNIQUE: Multi-detector row CT images were acquired from the lung bases through the abdomen and pelvis with the use of IV contrast. Sagittal and coronal images were acquired from the transaxial data. All CT scans performed at this facility utilize dose optimization techniques as appropriate to the exam, including the following: Automated exposure control and adjustment of the mA and/or KV according to patient size (this includes techniques or standardized protocols for targeted exams where dose is indication/reason for exam). IV CONTRAST: Administered ORAL CONTRAST: Not administered COMPARISON: None FINDINGS: LOWER CHEST: Unremarkable LIVER: Unremarkable BILIARY SYSTEM: Gallbladder is surgically absent. Bile ducts are not dilated. PANCREAS: Unremarkable SPLEEN: Unremarkable ADRENALS: Unremarkable KIDNEYS & URETERS: Unremarkable BLADDER: Unremarkable REPRODUCTIVE ORGANS: Unremarkable GASTROINTESTINAL: The stomach, small bowel, and colon are unremarkable. The appendix is normal. MESENTERY/PERITONEUM/RETROPERITONEUM: Unremarkable VASCULAR: Unremarkable LYMPH NODES: No adenopathy OSSEOUS & SOFT TISSUES: Unremarkable IMPRESSION: Unremarkable CT of the abdomen and pelvis post cholecystectomy. Electronically signed by: Margarita Ledezma MD (01/23/2020 9:45 AM) [id number]
[2020-01-23] MEDS ORDERED: OMEP20TA63 PO (10:51)
[2020-01-23] MEDS ORDERED: SUCR1TAB35 PO (10:51)
[2020-01-23 11:00] VITALS: BP 112/62
== END 2020-01-23 11:02 | disposition home or self-care (01) ==
LOC: ER 08:11
DX: R10.12 Left upper quadrant pain (principal); R11.0 Nausea; J45.909 Unspecified asthma, uncomplicated; I10 Essential (primary) hypertension; E03.9 Hypothyroidism, unspecified; Z90.49 Acquired absence of other specified parts of digestive tract; Z98.890 Other specified postprocedural states; Z98.51 Tubal ligation status; Z88.8 Allergy status to other drugs, medicaments and biological substances
CPT/HCPCS: 36415; 74177; 80053; 81001; 83690; 85025; 96374; 96375; 99285; J2270; J2405; Q9967

== ENCOUNTER 2020-02-28 15:03 | Emergency (ER) | payer OTHER ==
[~2020-02-28] VITALS: Ht 165.1 cm; Wt 131.0 kg
[~2020-02-28 15:03] MED LIST changes: +OMEP20TA63 PO; +SUCR1TAB35 PO
[2020-02-28 15:34] VITALS: BP 124/60
--- NOTE | 2020-02-28 16:09 | PHYS DOC ---
Past History Past Medical History: Asthma, GERD, Hypertension, Hypothyroid, Other Additional Past Medical Histor: irregular heartbeat, thyroid cancer Past Surgical History: Cholecystectomy, , Other Additional Past Surgical Histo: Thyroidectomy. Smoking: Non-smoker Alcohol Use: None Drug Use: None General Adult EDM: Chief Complaint: Neck Pain HPI: HPI: 49-year-old female presents with left-sided neck discomfort. Patient states that she has had intermittent pain on the left side of her neck the last few days. She wants to make sure is not something a vascular problem. Patient has had throat cancer in the past. She had a total thyroidectomy with an open neck procedure about 8 years ago. She has had no complications since that time. The pain is intermittent and comes and goes. She does not have any other symptoms other than a sharp discomfort just above the clavicle medially on the left side. She denies numbness, tingling, altered sensation. Review of Systems: Review of Systems: Constitutional: Denies fever or chills Eyes: Denies change in visual acuity HENT: Denies nasal congestion or sore throat Respiratory: Denies cough or shortness of breath Cardiovascular: Denies chest pain or edema GI: Denies abdominal pain, nausea, vomiting, bloody stools or diarrhea : Denies dysuria Musculoskeletal: Left-sided anterior neck pain Integument: Denies rash Neurologic: Denies headache, focal weakness or sensory changes Endocrine: Denies polyuria or polydipsia Lymphatic: Denies swollen glands Psychiatric: Denies depression or anxiety Allergies: Allergies: Allergies Coded Allergies Type Severity Reaction Last Updated Verified lisinopril Allergy Intermediate swelling lips/throat 02/28/20 Yes Physical Exam: PE: Constitutional: Well developed, well nourished, no acute distress, non-toxic appearance. [] HENT: Normocephalic, atraumatic. [] Eyes: PERRLA, EOMI, conjunctiva normal, no discharge. [] Neck: Normal range of motion. Surgical scar on the right neck and anterior neck. Asymmetrical skin appearance below the jawline due to removed tissue on the right. No palpable mass on the left. Mild tenderness with palpation.[] Cardiovascular:Heart rate regular rhythm, no murmur [] Lungs & Thorax: Bilateral breath sounds clear to auscultation [] Abdomen: Bowel sounds normal, soft, no tenderness, no masses, no pulsatile masses. [] Skin: Warm, dry, no erythema, no rash. [] Back: No tenderness, no CVA tenderness. [] Extremities: No tenderness, no cyanosis, no clubbing, ROM intact, no edema. [] Neurologic: Alert and oriented X 3, normal motor function, normal sensory function, no focal deficits noted. [] Psychologic: Affect normal, judgement normal, mood normal. [] Current Patient Data: Vital Signs: Vital Signs Date Time Temp Pulse Resp B/P (MAP) Pulse Ox O2 Delivery O2 Flow Rate FiO2 02/28/20 15:34 98.1 95 18 124/60 (81) 98 EKG: EKG: [] Radiology/Procedures: Radiology/Procedures: [] Heart Score: Risk Factors: Risk Factors: DM, Current or recent (<one month) smoker, HTN, HLP, family history of CAD, obesity. Risk Scores: Score 0 - 3: 2.5% MACE over next 6 weeks - Discharge Home Score 4 - 6: 20.3% MACE over next 6 weeks - Admit for Clinical Observation Score 7 - 10: 72.7% MACE over next 6 weeks - Early Invasive Strategies Course & Med Decision Making: Course & Med Decision Making Pertinent Labs and Imaging studies reviewed. (See chart for details) I please bedside ultrasound on the patient's area of concern he did not see any asymmetry of the tissues. I used color Doppler and found appropriate flow of smaller vessels. No hematoma or other abnormal echogenicity seen. This seems to be a musculoskeletal problem. The patient is reassured. She is stable for discharge at this time. If her condition worsens or changes she is welcome to come back to the emergency room. [] Dragon Disclaimer: Dragon Disclaimer: This electronic medical record was generated, in whole or in part, using a voice recognition dictation system. Departure Departure: Impression: Primary Impression: Neck pain on left side Disposition: 01 DC HOME SELF CARE/HOMELESS Condition: STABLE Referrals: KALLI DYER DO (PCP) Patient Instructions: Soft Tissue Injury of the Neck, [id number] CHAKA PATEL DO Feb 28, 2020 16:09
== END 2020-02-28 16:30 | disposition home or self-care (01) ==
LOC: ER 15:03
DX: M54.2 Cervicalgia (principal); J45.909 Unspecified asthma, uncomplicated; I10 Essential (primary) hypertension; K21.9 Gastro-esophageal reflux disease without esophagitis; E03.9 Hypothyroidism, unspecified; Z85.850 Personal history of malignant neoplasm of thyroid; Z90.49 Acquired absence of other specified parts of digestive tract; Z98.890 Other specified postprocedural states; Z90.89 Acquired absence of other organs; Z88.6 Allergy status to analgesic agent
CPT/HCPCS: 99281

== ENCOUNTER 2020-03-16 15:42 | Emergency (ER) | payer OTHER ==
[~2020-03-16] VITALS: Ht 165.1 cm; Wt 127.0 kg
--- NOTE | 2020-03-16 16:00 | PHYS DOC ---
Past History Past Medical History: Asthma, GERD, Hypertension, Hypothyroid, Other Additional Past Medical Histor: irregular heartbeat, thyroid cancer (LUCIANO HUERTA VAN) Past Surgical History: Cholecystectomy, , Other Additional Past Surgical Histo: Thyroidectomy. (LUCIANO HUERTA VAN) Smoking: Non-smoker Alcohol Use: None Drug Use: None (LUCIANO HUERTA VAN) Adult General Chief Complaint Chief Complaint: NAUSEA/VOMITING/DIARRHEA HPI HPI Patient is a 49 year old female who presents with complaints of a 3-day history of bilious vomiting stating that she has vomited approximately 5-6 times in the past 24 hours reporting this food particles that she eats and fluids that she drinks in her vomitus, denies blood in her vomitus. Patient reports she has not had a normal bowel movement in 3 days, she denies constipation also denies diarrhea spells, patient denies abdominal pain or discomfort. Patient reports that she is Covid positive as of last March 10, patient also states that she first came down with symptoms on March 08 specifically stating she just had chills. Patient currently denies shortness of breath, patient does complain of fevers at home however did not take her temperature, complains of chills, complains of cough for the past 4 days, reports clear phlegm production over the past 4 days with cough amounts from scant to moderate. Denies nasal congestion, denies ear pain, denies visual changes, denies chest pain or discomfort in her chest, denies abdominal pains or abdominal discomfort. Patient denies skin rashes, denies headaches, denies focal weaknesses or sensory changes, denies loss of smell, denies loss of taste, reports that she just feels generally fatigued, she denies increased urination or increased thirst, denies swelling of her glands, denies depressions or anxieties, denies homicidal or suicidal ideations. Patient does complain of low back pain specifically her tailbone reporting her pain of 5/10 on a 1-10 pain scale patient attributes this pain to lying on her bed for long periods of time. Patient denies injury to her low back denies injury to her tailbone denies fall. Patient states a surgical history of a D&C, C-sections, cholecystectomy, thyroidectomy in 2016 with removal of some lymph adjacent lymph nodes. Patient states she has a history of tachycardia, diverticulitis, high blood pressure, hypothyroidism. (LUCIANO HUERTA APRN) Review of Systems Review of Systems Constitutional: Complains of fever and chills since March 08. Patient is Covid 19+. Eyes: Denies change in visual acuity, redness, or eye pain HENT: Denies nasal congestion or sore throat Respiratory: Denies shortness of breath, complains of cough with clear sputum production over the last 4 days. Cardiovascular: Denies chest pains, states she can feel her heart beating rapidly. GI: Denies abdominal pain, constipation, diarrhea. Complains of bilious vomiting without blood. : Denies dysuria or hematuria Musculoskeletal: Complains of low back pain specifically tailbone pain. Integument: Denies rash or skin lesions Neurologic: Denies headache, focal weakness or sensory changes Endocrine: Denies polyuria or polydipsia Psychiatric: Denies homicidal or suicidal ideation, denies depression or anxieties. All other systems were reviewed and found to be within normal limits, except as documented in this note. (LUCIANO HUERTA APRN) Current Medications Current Medications Patient reports current medications as an EpiPen as needed for anaphylaxis/allergy, Benadryl 25 mg p.o. as needed, Flonase nasal spray, omeprazole 20 mg daily, 175 mcg levothyroxine daily, myocarditis 20 mg daily, metoprolol 20 mg daily, Advair inhaler daily, albuterol inhaler as needed, Zyrtec 10 mg p.o. daily, vitamin D injections 3 times a week, vitamin C p.o. supplement. (LUCIANO HUERTA APRN) Allergies Allergies Allergies Coded Allergies Type Severity Reaction Last Updated Verified lisinopril Allergy Intermediate swelling lips/throat 03/16/20 Yes (LUCIANO HUERTA APRN) Physical Exam Physical Exam Constitutional: Well developed, well nourished, no acute distress, non-toxic appearance. HENT: Normocephalic, atraumatic, bilateral external ears normal, oropharynx moist, no oral exudates, nose normal. Eyes: PERRLA, EOMI, conjunctiva normal, no discharge. Neck: Normal range of motion, no tenderness, supple, no stridor. Cardiovascular:Heart rate tachycardic with regular rhythm without ectopy, no murmur Lungs & Thorax: Bilateral breath sounds clear to auscultation all lung baez. Abdomen: Bowel sounds normal, soft, no tenderness, no masses, no pulsatile masses. Skin: Warm, dry, no erythema, no rash. Back: No tenderness, no CVA tenderness. No pain elicited with palpation over tailbone surface areas. Extremities: No tenderness, no cyanosis, no clubbing, ROM intact, no edema. Neurologic: Alert and oriented X 3, normal motor function, normal sensory function, no focal deficits noted. Psychologic: Affect normal, judgement normal, mood normal. (LUCIANO HUERTA APRN) Current Patient Data Lab Results Laboratory Tests Test 03/16/20 16:10 White Blood Count 3.5 x10^3/uL Red Blood Count 5.27 x10^6/uL Hemoglobin 12.9 g/dL Hematocrit 41.2 % Mean Corpuscular Volume 78 fL Mean Corpuscular Hemoglobin 24 pg Mean Corpuscular Hemoglobin Concent 31 g/dL Red Cell Distribution Width 15.9 % Platelet Count 118 x10^3/uL Neutrophils (%) (Auto) 70 % Lymphocytes (%) (Auto) 17 % Monocytes (%) (Auto) 11 % Eosinophils (%) (Auto) 0 % Basophils (%) (Auto) 1 % Neutrophils # (Auto) 2.4 x10^3uL Lymphocytes # (Auto) 0.6 x10^3/uL Monocytes # (Auto) 0.4 x10^3/uL Eosinophils # (Auto) 0.0 x10^3/uL Basophils # (Auto) 0.0 x10^3/uL Prothrombin Time 10.3 SEC Prothromb Time International Ratio 1.0 Activated Partial Thromboplast Time 27 SEC Sodium Level 136 mmol/L Potassium Level 3.4 mmol/L Chloride Level 99 mmol/L Carbon Dioxide Level 23 mmol/L Anion Gap 14 Blood Urea Nitrogen 13 mg/dL Creatinine 0.9 mg/dL Estimated GFR (Cockcroft-Gault) 66.8 BUN/Creatinine Ratio 14 Glucose Level 102 mg/dL Lactic Acid Level 1.2 mmol/L Calcium Level 8.6 mg/dL Total Bilirubin 0.5 mg/dL Aspartate Amino Transf (AST/SGOT) 17 U/L Alanine Aminotransferase (ALT/SGPT) 16 U/L Alkaline Phosphatase 54 U/L Lactate Dehydrogenase 225 U/L C-Reactive Protein 35.0 mg/L Total Protein 7.6 g/dL Albumin 3.4 g/dL Albumin/Globulin Ratio 0.8 Current Medications Medications (Trade) Dose Ordered Sig/Gaurang Route PRN Reason Start Time Stop Time Status Last Admin Dose Admin Ondansetron HCl (Zofran) 4 mg STK-MED ONCE .ROUTE 03/16/20 16:05 03/16/20 16:05 DC Ondansetron HCl (Zofran) 4 mg 1X ONCE IVP 03/16/20 16:15 03/16/20 16:16 DC 03/16/20 16:14 Sodium Chloride 1,000 ml @ 1,000 mls/hr 1X ONCE IV 03/16/20 16:15 03/16/20 17:14 DC 03/16/20 16:14 Acetaminophen (Tylenol) 500 mg STK-MED ONCE PO 03/16/20 16:12 03/16/20 16:13 DC Acetaminophen (Tylenol) 1,000 mg 1X ONCE PO 03/16/20 17:30 03/16/20 17:31 DC 03/16/20 17:21 Guaifenesin/ Codeine Phosphate (Robitussin Ac) 5 ml 1X STAT PO 03/16/20 18:28 03/16/20 18:29 DC 03/16/20 18:36 Potassium Chloride (Klor-Con) 20 meq 1X ONCE PO 03/16/20 18:30 03/16/20 18:31 DC 03/16/20 18:36 Sodium Chloride 1,000 ml @ 1,000 mls/hr 1X ONCE IV 03/16/20 18:30 03/16/20 19:29 03/16/20 18:33 Ceftriaxone Sodium 2 gm/ Sodium Chloride 100 ml @ 200 mls/hr 1X ONCE IV 03/16/20 18:45 03/16/20 19:14 Azithromycin 500 mg/Sodium Chloride 250 ml @ 250 mls/hr 1X ONCE IV 03/16/20 18:45 03/16/20 19:44 (LUCIANO HUERTA APRN) EKG EKG EKG performed at 1717 by house respiratory therapist, heart rate 113 bpm without ectopy, MN interval 0.158, QTc 0.499, no ischemia, no STEMI, no coronary syndrome noted, EKG interpreted by ED attending Dr. Suresh. (LUCIANO HUERTA APRN) Radiology/Procedures Radiology/Procedures REASON: cough, covid PROCEDURE: PORTABLE CHEST 1V PORTABLE CHEST 1V History: Reason: cough, covid / Spl. Instructions: / History: Comparison: December 13, 2017 Findings: Ill-defined patchy opacities bilaterally. No pleural effusion. No pneumothorax. Postop changes right lower neck. Unchanged heart size. Elevation of the right hemidiaphragm, unchanged. Calcified right midlung pulmonary nodule, likely prior granulomatous disease, unchanged. Impression: 1. Ill-defined opacities bilaterally, can be seen with pneumonia including viral pneumonia. Electronically signed by: Scott Mata DO (03/16/2020 6:08 PM) [facility] DICTATED AND SIGNED BY: SCOTT MATA DO DATE: 03/16/201807 CC: KALLI DYER DO; MAT SURESH MD ~MTH0 0 PROCEDURE: CT ANGIOGRAPHY CHEST CTA Chest with contrast: Clinical History: Elevated d dimer, tachy, COVID + Axial helical images of the chest were obtained after the administration of 100 cc of IV Omni 350 and timed appropriately for a pulmonary arterial study. Conventional axial reconstruction was performed in addition to coronal, sagittal and bilateral oblique MIP (maximum intensity projection). This study was ordered to detect possible pulmonary embolism. There are no filling defects to suggest pulmonary embolism. There is patchy nodular opacities throughout the lungs bilaterally. There is no mediastinal or hilar lymphadenopathy. There is elevation of the right hemidiaphragm was seen previously. The thoracic aorta appears normal. Impression: 1. No evidence of pulmonary embolism. 2. Patchy nodular opacities in the lungs could be inflammatory or infectious such as atypical pneumonia or septic emboli. End impression PQRS Compliance Statement: One or more of the following individualized dose reduction techniques were utilized for this examination: 1. Automated exposure control 2. Adjustment of the mA and/or kV according to patient size 3. Use of iterative reconstruction technique Electronically signed by: Dom Mejia III, MD (03/16/2020 9:38 PM) [facility] DICTATED AND SIGNED BY: DOM MEJIA III, MD DATE: 03/16/202137 CC: KALLI DYER DO; RODRIGO COLON DO ~MTH0 0 (LUCIANO HUERTA APRN) Heart Score Risk Factors: Risk Factors: DM, Current or recent (<one month) smoker, HTN, HLP, family history of CAD, obesity. Risk Scores: Risk Factors: DM, Current or recent (<one month) smoker, HTN, HLP, family history of CAD, obesity. (LUCIANO HUERTA APRN) Course & Med Decision Making Course & Med Decision Making Pertinent Labs and Imaging studies reviewed. (See chart for details) 49-year-old patient reports to the emergency department with complaints of nausea and vomiting for the past 3 days, patient states she is COVID-19 positive as of 10 March with symptoms that started on 08 March of fever or chills. Patient reports bilious vomiting however no vomiting elicited during her ER stay. Patient was given 4 mg of IV Zofran for her nausea which relieved all nausea symptoms. Patient presented with a tachycardia of 130 however an EKG was performed shortly after her arrival and her heart rate was noted to be 113. Patient states she has a long history of tachycardia which she takes metoprolol for. Patient does deny shortness of breath, she also denies chest pain and discomfort. However related to the patient's presentation of tachycardia, history of COVID-19 positive, a ER work-up was performed. A chest x-ray revealed bilateral opacities consistent with viral pneumonia as read by house radiologist. Patient's labs were consistent with the COVID-19 virus with a CRP level of 35, albuminemia, leukopenia, and lymphopenia. A CT angio of the chest at this time was not performed related to the patient denying shortness of breath, denying chest pain, the patient is not hypoxic, the patient does not appear toxic. A D-dimer is currently pending, will wait for these results before considering CT angio chest. D-dimer slightly elevated at 0.60, a CT angio chest was ordered, patient continues to deny shortness of breath, denies chest pains, the patient is not hypoxic, the patient does not appear toxic. CAT scan of the chest was read negative for pulmonary embolus, positive for atypical pneumonia per house radiologist. Discussed findings with patient who remains to have his nontoxic appearance, patient's heart rate is 103, this is most likely related to her longstanding history of tachycardia that is controlled with metoprolol at home, however she has been unable to keep her metoprolol adjusted related to her bilious vomiting over the past 3 days. Patient is no longer nauseated, reports she will take her home prescribed medications when she gets home. Patient states she is relieved that she does not have a blood clot in her lungs. Patient was given 2 g Rocephin, and 500 mg of azithromycin both IV related to atypical pneumonia. Patient will be discharged home with prescriptions for amoxicillin 1 g 3 times daily for 7 days, and a Z-Curtis for her atypical pneumonia most likely related to the COVID-19 virus, the patient will also be given a prescription for ODT Zofran to control her nausea so that she can keep her home prescribed medications down. Patient was given strict return to ER concerns and precautions, patient gave verbal understanding of discharge instructions, return to ER concerns, patient had no further questions or concerns, patient discharged home without incident. (LUCIANO HUERTA APRN) Course & Med Decision Making I discussed case with [employer] and oversaw care of patient. I agree with note and plan as stated. Patient symptoms improved with ER intervention, hemodynamically stable, ambulatory and tolerating PO prior to ED departure. Strict return precautions were discussed with good understanding. Advised patient to call our ED if symptoms worsen but should not hesitate to return for evaluation and treatment if concerned about decompensation. (RODRIGO COLON DO) Dragon Disclaimer Dragon Disclaimer This electronic medical record was generated, in whole or in part, using a voice recognition dictation system. (LUCIANO HUERTA APRN) Departure Departure: Impression: Primary Impression: COVID-19 virus infection Additional Impressions: Nausea & vomiting Productive cough Atypical pneumonia Disposition: 01 DC HOME SELF CARE/HOMELESS Condition: IMPROVED Referrals: KALLI DYER DO (PCP) Patient Instructions: Pneumonia, Adult Additional Instructions: Take medications as prescribed, I am prescribing you a prescription for Zithromax as well as amoxicillin. Follow-up with your physician soon, let him know that you are being treated for a pneumonia most likely related to the COVID-19 virus. Return to the emergency department for worsening symptoms or other concerns. Scripts Ondansetron (ONDANSETRON ODT) 4 Mg Tab.rapdis 1 TAB PO PRN Q6-8HRS for NAUSEA, #16 TAB 0 Refills Prov: LUCIANO HUERTA APRN 03/16/20 Azithromycin (ZITHROMAX PACKET) 1 Gm Packet 1 PACKET PO ONCE for ATYPICAL PNEUMONIA, #1 PACKET 1 Refill Prov: LUCIANO HUERTA APRN 03/16/20 Amoxicillin (AMOXICILLIN) 500 Mg Capsule 2 CAP PO TID for infection for 7 Days, #42 CAP 0 Refills Prov: LUCIANO HUERTA APRN 03/16/20 Problem Qualifiers Additional Impressions: Nausea & vomiting Vomiting type: bilious vomiting Qualified Codes: R11.14 - Bilious vomiting LUCIANO HUERTA APRN Mar 16, 2020 16:00 RODRIGO COLON DO Mar 17, 2020 20:14
[2020-03-16] MEDS ORDERED: ONDANSETRON PF 4 MG/2 ML VIAL. ONE (16:05)
[2020-03-16] MEDS ORDERED: ACETAMINOPHEN 500 MG TABLET PO ONE ×2 (16:12→17:30)
[2020-03-16] MEDS ORDERED: ONDANSETRON PF 4 MG/2 ML VIAL. IVP ONE (16:15)
[2020-03-16] MEDS ORDERED: IV NORMAL SALINE 1,000ML 1,000 ML IV ONE ×2 (16:15→18:30)
[2020-03-16 16:40] LABS: BASO % 1 % (0-3); EOS % 0 % (0-3); HEMATOCRIT 41.2 % (36.0-47.0); HEMOGLOBIN 12.9 g/dL (12.0-15.5); LYMPH # 0.6 x10^3/uL (1.0-4.8); LYMPH % 17 % (24-48); MEAN CORPUSCULAR HEMOGLOBIN 24 pg (25-35); MEAN CORPUSCULAR HGB CONC 31 g/dL (31-37); MEAN CORPUSCULAR VOLUME 78 fL (79-100); MONO # 0.4 x10^3/uL (0.0-1.1); MONO % 11 % (0-9); NEUT # 2.4 x10^3uL (1.8-7.7); NEUT % 70 % (31-73); PLATELET COUNT 118 x10^3/uL (140-400); RED BLOOD COUNT 5.27 x10^6/uL (3.50-5.40); RED CELL DISTRIBUTION WIDTH 15.9 % (11.5-14.5); WHITE BLOOD COUNT 3.5 x10^3/uL (4.0-11.0)
[2020-03-16 16:45] LABS: CALCIUM 8.6 mg/dL (8.5-10.1); CREATININE 0.9 mg/dL (0.6-1.0); GFR 66.8; POTASSIUM 3.4 mmol/L (3.5-5.1)
[2020-03-16 16:50] LABS: ALBUMIN 3.4 g/dL (3.4-5.0); ALBUMIN/GLOBULIN RATIO 0.8 (1.0-1.7); TOTAL BILIRUBIN 0.5 mg/dL (0.2-1.0); TOTAL PROTEIN 7.6 g/dL (6.4-8.2)
--- NOTE | 2020-03-16 17:21 | EKG ---
[address] [address] Test Date: 2020-03-16 Test Time: 17:17:11 Pat Name: CHRISTY SHETH Department: Room: Gender: F Family Services Manager: : 1970 Requested By: LUCIANO HUERTA Order Number: [id number] Reading MD: Measurements Intervals [place] Rate: 113 P: 214 NH: 158 QRS: 33 QRSD: 82 T: 23 QT: 364 QTc: 499 Interpretive Statements SUPRAVENTRICULAR RHYTHM OTHERWISE NORMAL ECG RI6.02 No previous ECG available for comparison
--- NOTE | 2020-03-16 18:11 | RAD ---
PORTABLE CHEST 1V History: Reason: cough, covid / Spl. Instructions: / History: Comparison: December 13, 2017 Findings: Ill-defined patchy opacities bilaterally. No pleural effusion. No pneumothorax. Postop changes right lower neck. Unchanged heart size. Elevation of the right hemidiaphragm, unchanged. Calcified right midlung pulmonary nodule, likely prior granulomatous disease, unchanged. Impression: 1. Ill-defined opacities bilaterally, can be seen with pneumonia including viral pneumonia. Electronically signed by: Scott Mata DO (03/16/2020 6:08 PM) [facility]
[2020-03-16] MEDS ORDERED: guaiFENesin/CODEINE 100mg/10mg 5 ML LIQUID PO STA (18:28)
[2020-03-16] MEDS ORDERED: POTASSIUM CHLORIDE 20 MEQ TABLET.ER. PO ONE (18:30)
[2020-03-16] MEDS ORDERED: AZITHROMYCIN 500 MG in IV NORMAL SALINE 250ML 250 ML IV ONE (18:45)
[2020-03-16] MEDS ORDERED: IV NORMAL SALINE 100ML 100 ML ONE (18:53)
[2020-03-16] MEDS ORDERED: IV NORMAL SALINE 250ML 250 ML ONE (18:53)
[2020-03-16] MEDS ORDERED: AZITHROMYCIN 500 MG VIAL. IV ONE (18:53)
[2020-03-16] MEDS ORDERED: CONTRAST GIVEN. MC PRN (21:00)
[2020-03-16] MEDS ORDERED: IOHEXOL 350 MG/ML 100 ML VIAL. IV ONE (21:00)
[2020-03-16 21:21] LABS: PLT ESTIMATE ADEQUATE (ADEQUATE)
--- NOTE | 2020-03-16 21:40 | RAD ---
CTA Chest with contrast: Clinical History: Elevated d dimer, tachy, COVID + Axial helical images of the chest were obtained after the administration of 100 cc of IV Omni 350 and timed appropriately for a pulmonary arterial study. Conventional axial reconstruction was performed in addition to coronal, sagittal and bilateral oblique MIP (maximum intensity projection). This study was ordered to detect possible pulmonary embolism. There are no filling defects to suggest pulmonary embolism. There is patchy nodular opacities throughout the lungs bilaterally. There is no mediastinal or hilar lymphadenopathy. There is elevation of the right hemidiaphragm was seen previously. The thoracic aorta appears normal. Impression: 1. No evidence of pulmonary embolism. 2. Patchy nodular opacities in the lungs could be inflammatory or infectious such as atypical pneumonia or septic emboli. End impression PQRS Compliance Statement: One or more of the following individualized dose reduction techniques were utilized for this examination: 1. Automated exposure control 2. Adjustment of the mA and/or kV according to patient size 3. Use of iterative reconstruction technique Electronically signed by: Mando Arauz III, MD (03/16/2020 9:38 PM) [facility]
[2020-03-16] MEDS ORDERED: AZIT1PAC PO (21:55)
[2020-03-16] MEDS ORDERED: ONDA4TAB12 PO (21:55)
[2020-03-16] MEDS ORDERED: AMOX500C PO (21:55)
[2020-03-16 22:05] VITALS: BP 118/68
== END 2020-03-16 22:05 | disposition home or self-care (01) ==
LOC: ER 15:42
DX: U07.1 COVID-19 (principal); J12.89 Other viral pneumonia; R05 Cough; R11.14 Bilious vomiting; J45.909 Unspecified asthma, uncomplicated; K21.9 Gastro-esophageal reflux disease without esophagitis; I10 Essential (primary) hypertension; E03.9 Hypothyroidism, unspecified; Z88.8 Allergy status to other drugs, medicaments and biological substances
CPT/HCPCS: 36415; 71045; 71275; 80053; 82728; 83605; 83615; 85025; 85379; 85610; 85730; 86140; 93005; 96361; 96365; 96366; 96375; 99285; J0456; J0696; J2405; J7030; J7050; Q9967

== ENCOUNTER → 2020-03-31 | Outpatient (CLI) | payer OTHER ==
[2020-03-16 22:05] VITALS: BP 118/68
[~2020-03-31] MED LIST changes: +AMOX500C PO; +AZIT1PAC PO; +ONDA4TAB12 PO
--- NOTE | 2020-03-31 13:04 | CARD ---
MR#: [id number] Date of Study: 03/31/2020 Ordering Physician: HUGO JEFF, Referring Physician: HUGO JEFF, Tech: Mounika Hill APPROVED REPORT EXAM: Two-dimensional and M-mode echocardiogram with Doppler and color Doppler. Other Information Quality : AverageHR: 75bpm Technically limited study due to body habitus. INDICATION Right Ventricle Diletation RISK FACTORS Hypertension Asthma 2D DIMENSIONS RVDd3.2 (2.9-3.5cm)Left Atrium(2D)4.2 (1.6-4.0cm) IVSd1.2 (0.7-1.1cm)Aortic Root(2D)2.7 (2.0-3.7cm) LVDd5.0 (3.9-5.9cm)LVOT Diameter2.0 (1.8-2.4cm) PWd1.0 (0.7-1.1cm)LVDs3.2 (2.5-4.0cm) FS (%) 37.5 %SV81.2 ml LVEF(%)67.3 (>50%) Aortic Valve AoV Peak Kingsley.148.7cm/sAoV VTI28.3cm AO Peak GR.8.0mmHgLVOT Peak Kingsley.101.7cm/s LVOT VTI 23.61cmAO Mean GR.6mmHg KRYSTAL (VMAX)2.05kj9ZXR (VTI)2.73cm2 Mitral Valve MV E Vupsshwz34.2cm/sMV DECEL [id number] MV A Ostxkfbj73.2cm/sE/A Ratio1.1 Pulmonary Valve PV Peak Pbuzaexf92.2cm/sPV Peak Grad.4mmHg Tricuspid Valve TR P. Bajaafes299jc/sRAP RYSMRUIT1ooPg TR Peak Gr.31zdDmBTMD75ixHv LEFT VENTRICLE The left ventricle is normal size. There is borderline to mild concentric left ventricular hypertroph y. The left ventricular systolic function is normal. The Ejection Fraction is 55-60%. There is normal LV segmental wall motion. Transmitral Doppler flow pattern is Grade II-pseudonormal filling dynamics . RIGHT VENTRICLE The right ventricle is mildly dilated. There is normal right ventricular wall thickness. The right ve ntricular systolic function is normal. ATRIA The left atrium size is normal. The right atrium size is normal. The interatrial septum is intact wit h no evidence for an atrial septal defect or patent foramen ovale as noted on 2-D or Doppler imaging. AORTIC VALVE The aortic valve is normal in structure and function. Doppler and Color Flow revealed no significant aortic regurgitation. There is no significant aortic valvular stenosis. Calculated aortic valve area is 2.7 cm2 with maximum pressure gradient of 9 mmHg and mean pressure gradient of 7 mmHg. MITRAL VALVE The mitral valve is normal in structure and function. There is no evidence of mitral valve prolapse. There is no mitral valve stenosis. Doppler and Color-flow revealed trace mitral regurgitation. TRICUSPID VALVE The tricuspid valve is normal in structure and function. Doppler and Color Flow revealed trace tricus pid regurgitation with an estimated PAP of 28 mmHg. There is no tricuspid valve stenosis. PULMONIC VALVE The pulmonic valve is not well visualized. Doppler and Color Flow revealed trace pulmonic valvular re gurgitation. GREAT VESSELS The aortic root is normal in size. The IVC is normal in size and collapses >50% with inspiration. PERICARDIAL EFFUSION There is no evidence of significant pericardial effusion. Critical Notification Critical Value: No <Conclusion> The left ventricular systolic function is normal. The Ejection Fraction is 55-60%. There is normal LV segmental wall motion. Trace mitral regurgitation. Trace tricuspid regurgitation with an estimated PAP of 28 mmHg. There is no evidence of significant pericardial effusion. Signed by : Klaus Davalos, Electronically Approved : 03/31/2020 13:04:24
== END ==
LOC: ECHO 08:50
PROVIDERS: ATTEND Internal Medicine Cardiovascular Disease
DX: I51.7 Cardiomegaly (principal)
CPT/HCPCS: 93306

== ENCOUNTER 2021-02-20 06:50 | Emergency (ER) | payer OTHER ==
[~2021-02-20] VITALS: Ht 165.1 cm; Wt 135.7 kg
[~2021-02-20 06:50] MED LIST changes: -LISI-338 PO; +LISI10TA16 PO; -LISI10TA2 PO; +LISI5TAB15 PO
[2021-02-20 07:06] VITALS: BP 130/78
--- NOTE | 2021-02-20 07:10 | PHYS DOC ---
Past History Past Medical History: Asthma, GERD, Hypertension, Hypothyroid, Other Additional Past Medical Histor: irregular heartbeat, thyroid cancer Past Surgical History: Cholecystectomy, , Other Additional Past Surgical Histo: Thyroidectomy. Smoking: Non-smoker Alcohol Use: None Drug Use: None General Adult EDM: Chief Complaint: ABDOMINAL PAIN HPI: HPI: 50-year-old female presents with right lower quadrant abdominal pain. The patient started to have intermittent pain at 6 PM last night. She was able to e at dinner without difficulty. Then around 8 PM the pain increased and has been fairly steady moderate pain of sharp intensity in the right lower quadrant. It has not moved from this location. She tossed and turned all night and this morning. It hurts worse this morning than last night so she decided to come in for evaluation. Her last bowel movement was yesterday. She denies dysuria or increased urinary frequency. She was feeling normal prior to the pain starting. No reported fever. The patient has had abdominal surgeries in the past including cholecystectomy and . She still has an appendix. Review of Systems: Review of Systems: Constitutional: Denies fever or chills Eyes: Denies change in visual acuity HENT: Denies nasal congestion or sore throat Respiratory: Denies cough or shortness of breath Cardiovascular: Denies chest pain or edema GI: Right lower quadrant abdominal pain. Denies nausea, vomiting, bloody stools or diarrhea : Denies dysuria Musculoskeletal: Denies back pain or joint pain Integument: Denies rash Neurologic: Denies headache, focal weakness or sensory changes Endocrine: Denies polyuria or polydipsia Lymphatic: Denies swollen glands Psychiatric: Denies depression or anxiety Allergies: Allergies: Allergies Coded Allergies Type Severity Reaction Last Updated Verified lisinopril Allergy Intermediate swelling lips/throat 03/16/20 Yes Physical Exam: PE: Constitutional: Well developed, well nourished, morbidly obese, no acute distress, non-toxic appearance. [] HENT: Normocephalic, atraumatic, bilateral external ears normal, oropharynx moist, no oral exudates, nose normal. [] Eyes: PERRLA, EOMI, conjunctiva normal, no discharge. [] Neck: Normal range of motion, no tenderness, supple, no stridor. [] Cardiovascular: Heart rate regular rhythm, no murmur [] Lungs & Thorax: Bilateral breath sounds clear to auscultation [] Abdomen: Bowel sounds normal, soft, right lower quadrant tenderness with guarding, no masses, no pulsatile masses. [] Skin: Warm, dry, no erythema, no rash. [] Back: No tenderness, no CVA tenderness. [] Extremities: No tenderness, no cyanosis, no clubbing, ROM intact, no edema. [] Neurologic: Alert and oriented X 3, normal motor function, normal sensory function, no focal deficits noted. [] Psychologic: Affect normal, judgement normal, mood normal. [] EKG: EKG: [] Radiology/Procedures: Radiology/Procedures: [] Impressions: EXAM: CT ABDOMEN/PELVIS WITH CONTRAST. HISTORY: Right lower quadrant pain. TECHNIQUE: Computed tomography of the abdomen and pelvis was performed after the intravenous administration of iodinated contrast. One or more of the following individualized dose reduction techniques were utilized for this examination: 1. Automated exposure control. 2. Adjustment of the mA and/or kV according to patient size. 3. Use of iterative reconstruction technique. COMPARISON: 01/23/2020. FINDINGS: There are limitations from [id number]-gc-[id number] ratio given technical factors. The most superior aspect of the hemidiaphragms are not included in this [id number]. Lung windows through the visualized portions of the bases reveal a calcified granuloma in the left lower lobe. Bone windows reveal no suspicious lesions. The appendix is thickened with surrounding inflammatory change, consistent with acute appendicitis. There is no drainable collection. There is no small bowel obstruction. The uterus and ovaries are unremarkable by CT. The gallbladder is surgically absent. The superior aspect of the hepatic dome was excluded, but no abnormalities appreciated. The spleen is mildly enlarged at 15.1 cm. The pancreas, adrenal glands and kidneys are unremarkable. There are no pathologically enlarged lymph nodes. IMPRESSION: 1. Acute appendicitis. 2. Mild splenomegaly. These findings were called to Dr. Patel by Cresencio Muir on 02/20/2021 at 8:20 AM. Electronically signed by: Shad Muir MD (02/20/2021 8:28 AM) [facility] DICTATED AND SIGNED BY: BURT MUIR MD DATE: 02/20/21 0809 CC: KALLI DYER DO; CHAKA PATEL DO ~MTH0 0 Heart Score: C/O Chest Pain: N/A Risk Factors: Risk Factors: DM, Current or recent (<one month) smoker, HTN, HLP, family history of CAD, obesity. Risk Scores: Score 0 - 3: 2.5% MACE over next 6 weeks - Discharge Home Score 4 - 6: 20.3% MACE over next 6 weeks - Admit for Clinical Observation Score 7 - 10: 72.7% MACE over next 6 weeks - Early Invasive Strategies Course & Med Decision Making: Course & Med Decision Making Pertinent Labs and Imaging studies reviewed. (See chart for details) The patient's labs are significant for slightly elevated white count. Her CT scan is significant for acute appendicitis. I will treat her with Zosyn prior to transfer. I spoke with Dr. Jensen, hospitalist at [facility] and he has accepted the patient for transfer. The patient is in agreement with this plan. We are having a little difficulty getting a hold of general surgery but we will make them aware of the patient as soon as we can. She will transfer by ambulance. I spoke with Dr. Velarde and he has agreed with transfer of the patient for likely surgery. [] Dragon Disclaimer: Dragon Disclaimer: This electronic medical record was generated, in whole or in part, using a voice recognition dictation system. Departure Departure: Impression: Primary Impression: Acute appendicitis Qualified Codes: K35.30 - Acute appendicitis with localized peritonitis, without perforation or gangrene Disposition: 02 SHORT TERM HOSPITAL Condition: STABLE Referrals: KALLI DYER DO (PCP) CHAKA PATEL DO Feb 20, 2021 07:10
[2021-02-20] MEDS ORDERED: ONDANSETRON PF 4 MG/2 ML VIAL. ONE (07:11)
[2021-02-20] MEDS ORDERED: MORPHINE SULFATE 4 MG/ML DISP.SYRIN. ONE (07:11)
[2021-02-20] MEDS ORDERED: IV NORMAL SALINE 1,000ML 1,000 ML IV ONE (07:15)
[2021-02-20] MEDS ORDERED: ONDANSETRON PF 4 MG/2 ML VIAL. IVP ONE (07:15)
[2021-02-20] MEDS ORDERED: MORPHINE SULFATE 4 MG/ML DISP.SYRIN. IV ONE (07:15)
[2021-02-20] MEDS ORDERED: IOHEXOL 300 MG/ML 75 ML VIAL. IV ONE (07:30)
[2021-02-20 07:45] LABS: BASO # 0.1 x10^3/uL (0.0-0.2); BASO % 1 % (0-3); EOS # 0.1 x10^3/uL (0.0-0.7); EOS % 1 % (0-3); HEMATOCRIT 36.4 % (36.0-47.0); HEMOGLOBIN 11.4 g/dL (12.0-15.5); LYMPH # 1.1 x10^3/uL (1.0-4.8); LYMPH % 9 % (24-48); MEAN CORPUSCULAR HEMOGLOBIN 25 pg (25-35); MEAN CORPUSCULAR HGB CONC 31 g/dL (31-37); MEAN CORPUSCULAR VOLUME 79 fL (79-100); MONO % 8 % (0-9); NEUT # 10.4 x10^3uL (1.8-7.7); NEUT % 82 % (31-73); PLATELET COUNT 191 x10^3/uL (140-400); RED BLOOD COUNT 4.61 x10^6/uL (3.50-5.40); RED CELL DISTRIBUTION WIDTH 15.4 % (11.5-14.5); WHITE BLOOD COUNT 12.6 x10^3/uL (4.0-11.0)
[2021-02-20 07:50] LABS: CALCIUM 8.8 mg/dL (8.5-10.1); CREATININE 0.6 mg/dL (0.6-1.0); GFR 106.3; POTASSIUM 4.1 mmol/L (3.5-5.1)
[2021-02-20 07:58] LABS: ALBUMIN 3.4 g/dL (3.4-5.0); ALBUMIN/GLOBULIN RATIO 0.9 (1.0-1.7); TOTAL BILIRUBIN 0.4 mg/dL (0.2-1.0); TOTAL PROTEIN 7.3 g/dL (6.4-8.2)
--- NOTE | 2021-02-20 08:30 | RAD ---
EXAM: CT ABDOMEN/PELVIS WITH CONTRAST. HISTORY: Right lower quadrant pain. TECHNIQUE: Computed tomography of the abdomen and pelvis was performed after the intravenous administ ration of iodinated contrast. One or more of the following individualized dose reduction techniques w ere utilized for this examination: 1. Automated exposure control. 2. Adjustment of the mA and/or kV according to patient size. 3. Use of iterative reconstruction technique. COMPARISON: 01/23/2020. FINDINGS: There are limitations from pwkajm-wn-nehzc ratio given technical factors. The most superior aspect of the hemidiaphragms are not included in this [id number]. Lung windows through the visualized portions of the bases reveal a calcified granuloma in the left lo wer lobe. Bone windows reveal no suspicious lesions. The appendix is thickened with surrounding inflammatory change, consistent with acute appendicitis. T here is no drainable collection. There is no small bowel obstruction. The uterus and ovaries are unremarkable by CT. The gallbladder i s surgically absent. The superior aspect of the hepatic dome was excluded, but no abnormalities appre ciated. The spleen is mildly enlarged at 15.1 cm. The pancreas, adrenal glands and kidneys are unrema rkable. There are no pathologically enlarged lymph nodes. IMPRESSION: 1. Acute appendicitis. 2. Mild splenomegaly. These findings were called to Dr. Curtis by Cresencio Muir on 02/20/2021 at 8:20 AM. Electronically signed by: Shad Muir MD (02/20/2021 8:28 AM) [facility]
[2021-02-20 09:09] LABS: BILIRUBIN,URINE NEG (NEG); CLARITY,URINE HAZY; COLOR,URINE STRAW; GLUCOSE,URINE NEG (NEG)
[2021-02-20 09:10] LABS: BACTERIA,URINE 0 /HPF (0-FEW); NITRITE,URINE NEG (NEG); RBC,URINE 0 /HPF (0-2); SQUAMOUS EPITHELIAL CELL,UR FEW /LPF; UROBILINOGEN,URINE 0.2 mg/dL (0.2 mg/dL); WBC,URINE 0 /HPF (0-4)
[2021-02-20] MEDS ORDERED: PIPERACILLIN/TAZOBACTAM 3.375 GM in IV NORMAL SALINE 50ML 50 ML IV ONE (09:30)
[2021-02-20] MEDS ORDERED: IV NORMAL SALINE 50ML 50 ML ONE (09:36)
[2021-02-20] MEDS ORDERED: PIPERACILLIN/TAZOBACTAM 3.375 GM VIAL IV ONE (09:37)
== END 2021-02-20 10:15 | disposition short-term general hospital (02) ==
LOC: ER 06:50
DX: K35.80 Unspecified acute appendicitis (principal); J45.909 Unspecified asthma, uncomplicated; K21.9 Gastro-esophageal reflux disease without esophagitis; I10 Essential (primary) hypertension; Z90.49 Acquired absence of other specified parts of digestive tract; Z88.8 Allergy status to other drugs, medicaments and biological substances; Z20.822 Contact with and (suspected) exposure to COVID-19
CPT/HCPCS: 36415; 74177; 80053; 81001; 85025; 87426; 96361; 96365; 96375; 99285; C9803; J2270; J2405; J2543; J7030; Q9967; U0003